=== PATIENT | male | born 1975 | race Caucasian/White ===

== ENCOUNTER 2020-05-06 11:44 | Outpatient (REF) | payer BC, SELFPAY ==
[2020-05-06 14:01] LABS: MANUAL DIFF FLAG NO
[2020-05-06 14:16] LABS: Basophils Absolute Auto 0.1 X10*3/uL (0.0-0.2); Basophils Percent Auto 0.5 % (0-2); Eosinophils Absolute Auto 0.3 X10*3/uL (0.0-0.4); Hematocrit 44.7 % (42-52); Hemoglobin 15.4 g/dl (14.0-18.0); Imm Gran Abs Auto 0.02 X10*3/uL (0.00-0.03); Imm Gran Pct Auto 0.2 % (0.0-0.4); Lymphocytes Percent Auto 32.2 % (20-40); Mean Corpuscular HGB Conc 34.5 g/dl (31.0-36.0); Mean Corpuscular Volume 92.9 fL (80-98); Mean Platelet Volume 12.8 fL (9.4-12.4); Monocytes Absolute Auto 0.4 X10*3/uL (0.1-1.2); Monocytes Percent Auto 3.8 % (2-11); Neutrophils Absolute Auto 5.6 X10*3/uL (2.0-8.3); Neutrophils Percent Auto 60.3 % (45-73); Platelet Count 166 X10*3/uL (160-400); Red Blood Count 4.81 X10*6/uL (4.60-5.80); Red Cell Distribution Width 11.6 % (11.0-16.0); White Blood Count 9.4 X10*3/uL (4.8-10.8)
== END 2020-05-06 11:45 | disposition home or self-care (01) ==
LOC: HO.WFDLDS 11:44
PROVIDERS: Visit Provider Family Medicine
DX: D72.829 Elevated white blood cell count, unspecified (principal)
CPT/HCPCS: 36415; 85025

== ENCOUNTER → 2020-05-20 09:18 | Outpatient (REF) | payer BC, SELFPAY ==
--- NOTE | 2020-05-20 09:30 | CA_ITS ---
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 The visually estimated ejection fraction is between 55-60%. - No obvious valvular pathology seen on this study. Findings Left Ventricle Normal left ventricular cavity size. There is normal left ventricular wall thickness. The left ventricular systolic function is normal. The visually estimated ejection fraction is between 55-60%. There is no evidence of regional wall motion abnormalities. Diastolic function is normal for age. Right Ventricle Normal right ventricular cavity size and systolic function. Atria The left atrium is normal in size. The right atrium is normal in size. Aortic Valve There is a normal trileaflet aortic valve. There is no aortic valve stenosis. There is no aortic valve regurgitation. Mitral Valve The mitral valve appears normal. There is trace mitral valve regurgitation. There is no mitral valve stenosis. Pulmonic Valve The pulmonic valve was not well visualized. Tricuspid Valve Normal tricuspid valve structure. There is no tricuspid valve regurgitation. Tricuspid regurgitation envelope is inadequate for calculation of right ventricular systolic pressure. Great Vessels The aortic annulus, sinuses of valsalva, and asc aorta are normal in size. Venous The inferior vena cava is normal in size and collapses greater than 50% with inspiration. Pericardium/Pleural There is no evidence of pericardial effusion. Prior Study Comparison No significant change compared to prior study dated: 01/03/2017. Recommendations, Care & Conclusions No obvious valvular pathology seen on this study. Measurements 2D Linear Measurements IVSd: 1.08 0.6-0.9/0.6-1.0 cm LVIDd: 4.68 3.9-5.3/4.2-5.9 cm LVIDd Index: 2.38 2.4-3.2/2.2-3.1 cm/m2 LVIDs: 2.62 2.0-3.6 cm LVPWd: 0.98 0.7-1.1 cm Ao Root: 3.30 2.1-3.5 cm LA Diam: 3.00 2.7-3.8/3.0-4.0 cm LAIDs Index: 1.52 1.5-2.3 cm/m2 LV Mass: 212.25 67-162/88-224 g LV Mass Index: 107.74 43-95/49-115 g/m2 LVOT Diam: 2.10 3.0+(-)1.3 cm 2D Systolic Function EF 4C: 61.50 >55% EF 2C: 50.50 >55% EF BiP: 56.90 >55% Mitral Valve MV Pk E: 0.58 MV PK A: 0.59 MV Decel Time: 127.00 E/A: 1.00 E'Lateral: 8.22 E'Medial: 8.12 E/E' Med: 7.10 E/E' Lat: 7.00 PHT: 37.00 MVA PHT: 5.95 Decel [place]: 4.55 Aortic Valve AoV Pk Harish: 1.05 AoV Mn Harish: 0.66 AoV VTI: 0.21 AoV Pk Grad: 4.00 Aov Mn Grad: 2.00 VIKRAM Cont.VTI: 2.39 LVOT LVOT Pk Harish: 0.70 LVOT Mn Harish: 0.56 LVOT VTI: 0.15 LVOT Pk Grad: 2.00 LVOT Mn Grad: 1.00 LVOT Diam: 2.10 LVOT Area: 3.46 Diastolic Function MV Pk E: 0.58 MV Pk A: 0.59 E/A: 1.00 E'Medial: 8.12 E/E' Med: 7.10 E' Laterial: 8.22 E/E' Lat: 7.00 Great Vessels Aorta Ao Root-2D: 3.30 2.0-3.7 cm Ao Asc: 3.00 2.1-3.4 cm Pulmonary Valve PV Pk Harish: 0.76 Peak PV Grad: 2.00 Updated in Other Vendor System with Status of Final Clive Martin MD electronically signed on 05/22/2020 4:52:18 PM with status of Final
--- NOTE | 2020-05-20 10:30 | ECG_ITS ---
Hook-up date: 2020-05-20 10:37:00 Duration: 44:26:00 Test Indications: PALPITATIONS Medications: 280021 QRS complexes 80 Ventricular ectopics which represent <1 % of total QRS comp. 2 Supraventricular ectopics which represent <1 % of total QRS comp. * Paced QRS complexs which represent % of total QRS comp. VENTRICULAR ECTOPY 80 Isolated 0 Bigeminal Cycles 0 Couplets 0 Runs 0 Beats in Runs * Beats LONGEST at * BPM at :: -- * Beats FASTEST at * BPM at :: -- SUPRAVENTRICULAR ECTOPY 2 Isolated 0 Couplets 0 Runs 0 Beats in Runs * Beats LONGEST at * BPM at :: -- * Beats FASTEST at * BPM at :: -- HEART RATES 51 MIN at 16:20:25 2020-05-20 86 AVG 140 MAX at 06:33:37 2020-05-21 LONGEST RR 1.3600 secs at 16:22:42 2020-05-20 S-T LEVELS Channel 1 - 128 mm at 10:37:00 2020-05-20 - 128 mm at 10:37:00 2020-05-20 Channel 2 - 128 mm at 10:37:00 2020-05-20 - 128 mm at 10:37:00 2020-05-20 Channel 3 - 128 mm at 02:95:61 -- - 128 mm at 02:95:61 Underlying rhythm is sinus; Average ventricular rate 86/min; About 23% of the time, ventricular rate >100/min; Occasional, isolated, ventricular ectopy; Patient did not report any symptoms in the diary Referred By: Tra Blackburn Overread By: OLGA HARRINGTON
== END ==
LOC: HO.CARD 09:18
PROVIDERS: PCP Family Medicine; Visit Provider Family Medicine
DX: R07.89 Other chest pain (principal); R00.2 Palpitations; I49.3 Ventricular premature depolarization
CPT/HCPCS: 93225; 93226; 93306

== ENCOUNTER 2021-03-08 07:07 | Outpatient (REF) | payer BC, SELFPAY ==
[2021-03-08 11:25] LABS: MANUAL DIFF FLAG NO
[2021-03-08 11:41] LABS: Basophils Absolute Auto 0.1 X10*3/uL (0.0-0.2); Basophils Percent Auto 0.5 % (0-2); Eosinophils Absolute Auto 0.5 X10*3/uL (0.0-0.4); Eosinophils Percent Auto 5.1 % (0-4); Hematocrit 49.1 % (42.0-52.0); Hemoglobin 17.1 g/dl (14.0-18.0); Imm Gran Abs Auto 0.04 X10*3/uL (0.00-0.03); Imm Gran Pct Auto 0.4 % (0.0-0.4); Lymphocytes Absolute Auto 4.1 X10*3/uL (1.2-4.9); Lymphocytes Percent Auto 41.5 % (20-40); Mean Corpuscular HGB Conc 34.8 g/dl (31.0-36.0); Mean Corpuscular Hemoglobin 32.1 pg (27.0-33.0); Mean Corpuscular Volume 92.1 fL (80.0-98.0); Monocytes Absolute Auto 0.4 X10*3/uL (0.1-1.2); Monocytes Percent Auto 4.5 % (2-11); Neutrophils Absolute Auto 4.7 x10*3/uL (2.0-8.3); Platelet Count 177 X10*3/uL (160-400); Red Blood Count 5.33 X10*6/uL (4.60-5.80); Red Cell Distribution Width 11.9 % (11.0-16.0); White Blood Count 9.8 X10*3/uL (4.8-10.8)
[2021-03-08 12:05] LABS: Amphetamine Screen Urine Not Detected (Not Detect); Barbiturates, Urine Not Detected (Not Detect); Benzodiazepines Screen Urine POSITIVE (Not Detect); Cannabinoid Screen Urine Not Detected (Not Detect); Cocaine Screen Urine Not Detected (Not Detect); Fentanyl, urine Not Detected (Not Detect); Opiate Screen Urine Not Detected (Not Detect); Phencyclidine Screen Urine Not Detected (Not Detect)
[2021-03-08 12:18] LABS: Appearance Urine CLEAR; Color Urine YELLOW; Glucose Urine UA NEG (NEG); Leukocyte Esterase Urine NEG (NEG); Nitrite Urine NEG (NEG); PH 5.5 (5.0-8.0); Specific Gravity - Urine >= 1.030 (1.005-1.025); Urine Blood NEG (NEG); Urine Ketones NEG (NEG); Urine Protein NEG (NEG-TRACE)
[2021-03-08 14:18] LABS: Alanine Aminotransferase 23 U/L (0-40); Albumin Level 4.1 g/dL (3.5-5.0); Alkaline Phosphatase 66 U/L (39-117); Anion Gap 14 (12-20); Aspartate Amino Transferase 13 U/L (5-37); Bilirubin Total 0.4 mg/dL (0.0-1.0); Blood Urea Nitrogen 12 mg/dL (9-16); Calcium 8.9 mg/dL (8.4-10.2); Carbon Dioxide 23 mmol/L (22-29); Chloride 109 mmol/L (96-108); Estimated Glomerular Filt Rate > 60; Glucose Fasting 105 mg/dL (60-99); Potassium 4.2 mmol/L (3.3-5.1); Sodium 142 mmol/L (135-145); Total Protein 6.4 g/dL (6.5-8.0)
[2021-03-08 14:40] LABS: TSH reflex Free T4 2.03 uIU/mL (0.32-4.0)
[2021-03-12 14:15] LABS: Testosterone, Free 108.9 pg/mL (35.0-155.0); Testosterone, Total 576 ng/dL (250-1100)
== END 2021-03-08 07:08 | disposition home or self-care (01) ==
LOC: HO.WFDLDS 07:07
PROVIDERS: Visit Provider Family Medicine
DX: Z00.00 Encounter for general adult medical examination without abnormal findings (principal); F41.9 Anxiety disorder, unspecified; F32.A Depression, unspecified; R53.83 Other fatigue
CPT/HCPCS: 80053; 80307; 81003; 84402; 84403; 84443; 85025

== ENCOUNTER 2021-10-12 12:09 | Outpatient (REF) | payer BC, SELFPAY ==
[2021-10-12 12:55] LABS: Influenza A PCR NEGATIVE (Negative); Influenza B PCR NEGATIVE (Negative); Resp Syncy Virus RNA Qual PCR NEGATIVE (Negative); SARS COV2 PCR INHOUSE POSITIVE (Negative)
== END 2021-10-12 12:10 | disposition home or self-care (01) ==
LOC: HO.LNP 12:09
PROVIDERS: Visit Provider Family Medicine
DX: Z20.822 Contact with and (suspected) exposure to COVID-19 (principal); B34.9 Viral infection, unspecified
CPT/HCPCS: 0241U

== ENCOUNTER 2023-08-17 15:40 | Outpatient (AMB) | payer BC, SELFPAY ==
[2023-08-17 15:47] VITALS: BP 110/70; PULSE 86; O2SAT 95; BMI 27.9
--- NOTE | 2023-08-17 15:47 | A.OFFPC_ITS ---
Vital Signs 08/17/23 15:47 Height 5 ft 9 in Weight 189 lb BMI 27.9 BP 110/70 Blood Pressure Location Lt brachial Position Sitting Pulse 86 Pulse Source Pulse Oximeter Pulse Oximetry (%) 95 Oxygen Delivery Method Room Air Intake Visit Reasons: CPE Follow up labs Intake Note: Patient is here for his physical today, but did not get his labs. Allergies No Known Allergies [No Known Allergies*] Allergy (Verified 08/17/23 15:51) Medication List - Last Reconciled 08/17/23 by Tra Blackburn MD alprazolam 0.5 mg PO DAILY 30 days Tobacco use date assessed: 08/17/23 HPI CPE Follow up labs HPI Details 48 y/o male presents for a CPE with f/u labs and health maintenance. No recent labs to review. Pt reports anxiety - he notes mirtazapine had been causing him to snap at work when he states he is normally more calm. JANUARY-7 18 today Pt notes he had back pain and had gotten hurt at work. He states difficulty sitting and standing up straight. [facility] Medical History (Updated 08/17/23 @ 16:51 by Jose Moran) Lower back pain Surgical History History of elbow surgery Family History (Updated 08/17/23 @ 15:55 by Karyn Preston CMA) Father CVD (cardiovascular disease) Myocardial infarction Mental health disorder Mother Mental health disorder Brother No problems noted. Sister Mental health disorder Sister No problems noted. Son No problems noted. Son No problems noted. Social History Housing: House Alcohol intake: never Patient Tobacco Use Status: Current everyday Tobacco user Tobacco use type: Cigarette Cigarette Packs Per Day: 1 Cigarettes Per Day: 15 e-Cigarette/Vaping Use: Never Used Second Hand Smoke Exposure: Yes service: No Current occupational status: employed Cognitive needs: No Hearing needs: No Vision needs: Yes (Glasses) Questionnaire PHQ-9 Over the last 2 weeks, how often have you been bothered by any of the following problems? 1. Little interest or pleasure in doing things: not at all 2. Feeling down, depressed, or hopeless: not at all 3. Trouble falling or staying asleep, or sleeping too much: not at all 4. Feeling tired or having little energy: not at all 5. Poor appetite or overeating: not at all 6. Feeling bad about yourself - or that you are a failure or have let yourself or your family down: not at all 7. Trouble concentrating on things, such as reading the newspaper or watching television: not at all 8. Moving or speaking so slowly that other people could have noticed. Or the opposite - being so fidgety or restless that you have been moving around a lot more than usual: not at all 9. Thoughts that you would be better off or of hurting yourself in some way: not at all Total score: 0 Depression Screening Interpretation: Negative Depression Screening Done: Yes 35083 - PHQ-9 Billing: Yes Source: Developed by Drs. Gelacio Enriquez, Pretty Ricks, Betito Ramirez and colleagues, with an educational bhumika from [employer]. Thrive Questionnaire Date Thrive assessed: 10/26/21 I am a: Patient What is your living situation today?: I have a steady place to live Within the past 12 months, did the food you bought not last and you didn't have the money to get more?: Never true Within the past 12 months, did you worry whether your food would run out before you got money to buy more?: Never true Do you have trouble paying for medicines?: No Do you have trouble getting transportation to medical appointments?: No Do you have trouble paying your heating and electricity bill?: No Do you have trouble taking care of your child, family member or friend?: No Do you have trouble with day-to-day activities such as bathing, preparing meals, shopping, managing finances, etc.?: No Are you currently unemployed and looking for a job?: No Are you interested in more education?: No THRIVE Score: 0 AUDIT C Alcohol Use Questionnaire (AUDIT-C) 1. How often do you have a drink containing alcohol?: Never 3. How often do you have six or more drinks on one occasion?: Never Total Score: 0 JANUARY-7 AMB Questionnaire JANUARY-7 Date JANUARY - 7 assessed: 08/17/23 Feeling nervous, anxious, or on edge: 3 = Nearly every day Not being able to stop or control worryin = Nearly every day Worrying too much about different things: 3 = Nearly every day Trouble relaxin = Nearly every day Being so restless that it is hard to sit still: 3 = Nearly every day Becoming easily annoyed or irritable: 0 = Not at all Feeling afraid as if something awful might happen: 3 = Nearly every day Total JANUARY-7 score (0-4 normal; 5-9 mild; 10-14 moderate; 15-21 severe): 18 Source: Developed by Drs. Gelacio Enriquez, Pretty Ricks, Betito Ramirez and colleagues, with an educational bhumika from [employer]. JANUARY-7 Assessment Billing JANUARY-7 Assessment Tool: JANUARY-7 Assessment 30155 Review of Systems Const Denies chills, Denies fatigue, Denies fever(s), Denies headache(s) and Denies weakness Eyes Denies change in vision ENT Denies dizziness, Denies headache(s), Denies hearing loss, Denies nasal congestion, Denies sinus pain, Denies sinus pressure and Denies sore throat Card Denies chest pain, Denies lightheadedness, Denies dyspnea and Denies other (palpitations) Resp Denies cough, Denies dyspnea and Denies wheezing GI Denies abdominal pain, Denies melena, Denies hematochezia, Denies change in bowel habits, Denies dyspepsia and Denies nausea Denies hematuria and Denies dysuria Musc Denies abnormal gait, Reports back pain, Denies myalgias, Denies arthralgias, Denies numbness and Denies tingling Skin/Breast Denies rash, Denies unusual bruising and Denies wounds Neuro Denies abnormal gait, Denies dizziness, Denies headache(s), Denies memory loss, Denies numbness, Denies Sensory deficit (Neuro), Denies tingling and Denies weakness Psych Reports anxiety and Denies memory loss Endo Denies cold intolerance, Denies fatigue, Denies heat intolerance, Denies polyd ipsia and Denies polyuria Elvis/Lymph Denies easy bleeding and Denies easy bruising Aller/Immun Denies wheezing Physical exam (Primary Care) Vital Signs: Last Vital Signs Pulse 86 08/17/23 15:47 BP 110/70 08/17/23 15:47 Pulse Ox 95 08/17/23 15:47 Oxygen Delivery Method Room Air 08/17/23 15:47 BMI result Body Mass Index 27.9 Tobacco/Smoking Status: Tobacco use Status Tobacco use date assessed 08/17/23 08/17/23 16:02 Patient Tobacco Use Status Current everyday Tobacco 08/17/23 15:49 Tobacco use type Cigarette 08/17/23 15:49 e-Cigarette/Vaping Use Never Used 08/17/23 15:49 PHQ-9: PHQ-9 Score PHQ-9: Total score 0 08/17/23 16:02 Depression Screening Interpretation: Negative Thrive Assessment: Date of Thrive Assessment Date Thrive assessed 10/26/21 08/17/23 15:49 Const General: no acute distress, well developed, alert and awake Nutritional Appearance: well nourished Orientation/consciousness: patient oriented x3 HENMT Head: Yes normocephalic and Yes atraumatic Ears: hearing grossly normal bilaterally and TM's normal bilaterally General nose exam: Normal external nose present and Normal nares present Mouth: Normal oral and palatal mucosa present and moist mucous membranes Teeth and gingiva: dentition normal Throat: Yes posterior oropharynx normal Eyes General: appearance normal, both eyes and all related structures Pupils: Equal, round and reactive pupils present and Pupil accommodation reflex normal EOM: EOMs intact bilaterally Neck Neck: Yes normal visual inspection, Yes no lymphadenopathy and Yes trachea midline Thyroid: Thyroid normal Carotids: no bruits Lymphatic: no lymphadenopathy noted Chest Chest palpation & inspection: normal inspection of the chest Resp Effort & Inspection: normal respiratory effort Auscultation: clear to auscultation bilaterally Cardio Rate: regular rate Rhythm: regular rhythm Heart sounds: S1 normal heart sound present, S2 normal heart sound present, no gallops, no murmurs and no rubs Bruits: no abdominal aortic bruits and no carotid bruits GI Palpation (GI): No Abdominal aortic bruit present, Soft to palpation, nontender, No hepatosplenomegaly present and No Rebound tenderness present Auscultation: normal bowel sounds General: Yes no CVA tenderness Back/Spine/Pelvis Other: Straight leg raises to about 65 degrees bilateral legs with pain and symptoms Hunched over gait, pain with range of motion of his back Back: no CVA tenderness Cervical Spine: cervical ROM normal Thoracic/Lumbar Spine: thoraco-lumbar ROM normal, No pain with thoraco-lumbar ROM, No thoracic spinal tenderness and No lumbar spinal tenderness Skin Lesions: no lesions Rashes: no rashes Trauma: no lacerations or abrasions Wounds: no wounds Nails: normal Neuro General: patient oriented x3 Cranial nerves: Yes Equal, round and reactive pupils present Cognition (Neuro): normal cognition Gait exam (Neuro): Normal gait present Motor exam (neuro): 5/5 motor strength present throughout Sensory Exam: No Sensory deficit (Neuro) Deep tendon reflexes (DTR's): Right patellar reflex intensity grade: 2+ and Left patellar reflex intensity grade: 2+ Extrem General: Yes normal to inspection and No edema Psych Appearance: grossly normal Affect: normal affect Attitude: cooperative Thought process: Normal thought process present Assessment and Plan Assessment & Plan (1) Adult general medical exam: Code(s): Z00.00 - Encounter for general adult medical examination without abnormal findings Plan: 48-year-old?male?presents?for?complete?physical?exam (2) Back pain: Code(s): M54.9 - Dorsalgia, unspecified Plan: Recent?moderately?severe?back?strain. Evaluated?patient?and?he?is?going?to?need?more?time?for?recovery.??I?do?not?feel ?that?modified?work?with?lifting?restrictions?is?enough.??Will?give?him?a?note?t o?be?out?of?work?for?the?next?3?weeks?and?I?will?follow-up?prior?to?this. Encouraged?him?to?change?positions?frequently?in?that?standing/short?spans?a?[place]?are?a?good?idea?but?he?should?not?lift?push?or ?pull?anything.??Will?give?him?a?script?for?ibuprofen?and?a?very?short?course?of ?cyclobenzaprine. Encouraged?ice/heat Will?follow-up?at?next?visit?and?determine?if?he?is?ready?to?start?work?with?res trictions?or?needs?a?longer?span?of?rest?or?a?referral?to?a?specialist. (3) Anxiety and depression: Code(s): F41.9 - Anxiety disorder, unspecified; F32.A - Depression, unspecified Plan: Rather?severe?anxiety Continue?alprazolam He?is?tried?numerous?other?medications. Encouraged?him?to?get?re connected?with?a?therapist?and?he?agrees.??Will?ask?the?nurse?navigator?to?help? connect?him. Orders: Orders Complete Blood Count Auto Diff Today Z00.00 - Encounter for general adult medical examination without abnormal findings Lipid Panel Today Z00.00 - Encounter for general adult medical examination without abnormal findings Prostate Specific Antigen Scr Today Z12.5 - Encounter for screening for malignant neoplasm of prostate Comprehensive [place]. Panel Fast Today Z00.00 - Encounter for general adult medical examination without abnormal findings Microalbumin, Random (w Creat) Today I10 - Essential (primary) hypertension TSH reflex Free T4 Today Z00.00 - Encounter for general adult medical examination without abnormal findings UA and rflx microscopic Today Z00.00 - Encounter for general adult medical examination without abnormal findings Referrals Nurse Navigator Referral F32.A - Depression, unspecified, F41.9 - Anxiety disorder, unspecified Medications: New cyclobenzaprine 10 mg PO BEDTIME 5 days PRN 5 tabs 0RF muscle spasm ibuprofen 800 mg PO Q8H 14 days PRN 42 tabs 0RF pain Coding Level of Care Code Est Pt Prev Care 40-64y(30586) Diagnoses Adult general medical exam Z00.00 Back pain M54.9 Anxiety and depression F41.9; F32.A Additional Codes JANUARY-7 Assessment Billing - JANUARY-7 Assessment Tool: JANUARY-7 Assessment 77778 ([id number])
== END 2023-08-17 17:06 | disposition home or self-care (01) ==
PROVIDERS: PCP Family Medicine; Visit Provider Family Medicine
DX: Z00.00 Encounter for general adult medical examination without abnormal findings (principal); M54.9 Dorsalgia, unspecified; F41.9 Anxiety disorder, unspecified; F32.A Depression, unspecified
CPT/HCPCS: 99396

== ENCOUNTER 2023-09-12 14:24 | Outpatient (AMB) | payer BC, SELFPAY ==
[2023-09-12 14:47] VITALS: BP 128/68; PULSE 79; O2SAT 97; BMI 28.1
--- NOTE | 2023-09-12 14:47 | A.OFFPC_ITS ---
Vital Signs 09/12/23 14:47 Height 5 ft 9 in Weight 190 lb BMI 28.1 BP 128/68 Blood Pressure Location Lt brachial Pulse 79 Pulse Source Pulse Oximeter Pulse Oximetry (%) 97 Oxygen Delivery Method Room Air Intake Visit Reasons: f/u back pain Intake Note: Patient is here with FMLA papers for back pain. Patient would like refill of the Alprazolam. Allergies No Known Allergies [No Known Allergies*] Allergy (Verified 09/12/23 14:48) Tobacco use date assessed: 08/17/23 Dental Screening Dental Screen Date: 09/12/23 Did you have a dental visit in the last 12 months?: Yes Did you have a dental problem in the last 6 months where you did not have access to dental care?: No Was dental information given to patient?: Patient declined HPI f/u back pain HPI Details 48 y/o male [facility]. He has FMLA paperwork he would like filled. He reports ongoing back pain but does note it has minimally improved. [facility] Medical History Lower back pain Surgical History History of elbow surgery Family History Father CVD (cardiovascular disease) Myocardial infarction Mental health disorder Mother Mental health disorder Brother No problems noted. Sister Mental health disorder Sister No problems noted. Son No problems noted. Son No problems noted. Social History Housing: House Alcohol intake: never Patient Tobacco Use Status: Current everyday Tobacco user Tobacco use type: Cigarette Cigarette Packs Per Day: 1 Cigarettes Per Day: 15 e-Cigarette/Vaping Use: Never Used Second Hand Smoke Exposure: Yes service: No Current occupational status: employed Cognitive needs: No Hearing needs: No Vision needs: Yes (Glasses) Questionnaire Thrive Questionnaire Date Thrive assessed: 10/26/21 JANUARY-7 AMB Questionnaire JANUARY-7 Date JANUARY - 7 assessed: 08/17/23 Source: Developed by Drs. Gelacio Enriquez, Pretty Ricks, Betito Ramirez and colleagues, with an educational bhumika from [employer] [employer]. Review of Systems Const Denies chills, Denies fatigue, Denies fever(s), Denies headache(s) and Denies weakness ENT Denies dizziness and Denies headache(s) Card Denies dyspnea Resp Denies cough, Denies dyspnea, Denies wheezing and Denies other (shortness of breath) Musc Reports back pain, Denies numbness and Denies tingling Neuro Denies dizziness, Denies headache(s), Denies numbness, Denies tingling and Denies weakness Psych Denies anxiety and Denies depression Endo Denies fatigue Aller/Immun Denies wheezing Physical exam (Primary Care) Vital Signs: Last Vital Signs Pulse 79 09/12/23 14:47 BP 128/68 09/12/23 14:47 Pulse Ox 97 09/12/23 14:47 Oxygen Delivery Method Room Air 09/12/23 14:47 BMI result Body Mass Index 28.1 Tobacco/Smoking Status: Tobacco use Status Tobacco use date assessed 08/17/23 09/12/23 14:50 Patient Tobacco Use Status Current everyday Tobacco 09/12/23 14:50 Tobacco use type Cigarette 09/12/23 14:50 e-Cigarette/Vaping Use Never Used 09/12/23 14:50 Thrive Assessment: Date of Thrive Assessment Date Thrive assessed 10/26/21 09/12/23 14:50 Const General: well developed; No acute distress Nutritional Appearance: well nourished Orientation/consciousness: patient oriented x3 HENMT Head: Yes normocephalic and Yes atraumatic Eyes General: appearance normal, both eyes and all related structures Pupils: Equal, round and reactive pupils present EOM: EOMs intact bilaterally Resp Effort & Inspection: normal respiratory effort Neuro General: patient oriented x3 and gait normal Cranial nerves: Yes Equal, round and reactive pupils present Psych Affect: normal affect Assessment and Plan Assessment & Plan (1) Back pain: Code(s): M54.9 - Dorsalgia, unspecified Plan: Patient?had?had?severe?low?back?pain?at?level?of?L5 Had?given?him?3?weeks?time?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 He?notes?that?he?is?gradually?getting?better?but?still?has?discomfort Will?now?start?physical?therapy?and?check?an?x-ray Filled?out?FMLA?paperwork.??Will?keep?him?out?through?September??and?he?may?return ?to?work?without?restrictions?on?September?.??He?will ?call?or?return?to?office?if?symptoms?worsen?or?are?not?resolved. Orders: Orders XR lumbar spine 2-3V Today M54.9 - Dorsalgia, unspecified PT Evaluation and Treatment Today M54.9 - Dorsalgia, unspecified Medications: Refilled alprazolam 20 tabs per 30 days. [employer] verified. Partial refill upon request. 0.5 mg PO DAILY 30 days 20 tabs 0RF M54.9 - Dorsalgia, unspecified ibuprofen 800 mg PO Q8H 14 days PRN 42 tabs 0RF pain M54.9 - Dorsalgia, unspecified Coding Level of Care Code Est Pt Level 3 (86035) Diagnoses Back pain M54.9
== END 2023-09-12 15:50 | disposition home or self-care (01) ==
PROVIDERS: PCP Family Medicine; Visit Provider Family Medicine
DX: M54.9 Dorsalgia, unspecified (principal)
CPT/HCPCS: 99213

== ENCOUNTER 2023-12-21 08:35 | Outpatient (AMB) | payer BC, SELFPAY ==
--- NOTE | 2023-12-21 08:46 | MHC.PC.OV ---
Vital Signs 12/21/23 08:50 Height 5 ft 9 in Weight 187 lb BMI 27.6 BP 100/70 Blood Pressure Location Lt brachial Position Sitting Respiration 12 Pulse 90 Pulse Source Pulse Oximeter Temp 97.8 F Temp Source Tympanic Pulse Oximetry (%) 95 Oxygen Delivery Method Room Air Intake Visit Reasons: follow up anxiety issues Intake Note: mental health f/u Allergies No Known Allergies [No Known Allergies*] Allergy (Verified 12/21/23 08:46) Tobacco use date assessed: 08/17/23 Dental Screening Dental Screen Date: 09/12/23 HPI follow up anxiety issues HPI Details 48 y/o male presents to f/u anxiety. Also f/u back pain - checking x-ray and referred him to physical therapy. PHQ-9 15, JANUARY-7 18 today. He is on alprazolam 0.5mg daily. Pt notes anxiety has been worsening since last week. He reports anxiety has erupted into panic attacks and he is unsure why his anxiety is spiking. Had trialed mirtazapine before but pt states this had caused him to be irritable. Denies any SI/HI. HPI Comments History of Present Illness Details Documentation assistance for Tra Blackburn MD, was provided by Jose Moran, Psychologist Industrial Organ[employer] on 12/21/2023 at 9:04 AM EST. I, Dr. Blackburn, have read, observed, and verified documentation. [facility] Medical History Lower back pain Surgical History History of elbow surgery Family History Father CVD (cardiovascular disease) Myocardial infarction Mental health disorder Mother Mental health disorder Brother No problems noted. Sister Mental health disorder Sister No problems noted. Son No problems noted. Son No problems noted. Social History Housing: House Alcohol intake: never Patient Tobacco Use Status: Current everyday Tobacco user Tobacco use type: Cigarette Cigarette Packs Per Day: 1 Cigarettes Per Day: 15 e-Cigarette/Vaping Use: Never Used Second Hand Smoke Exposure: Yes service: No Current occupational status: employed Cognitive needs: No Hearing needs: No Vision needs: Yes (Glasses) Questionnaire PHQ-9 Over the last 2 weeks, how often have you been bothered by any of the following problems? 1. Little interest or pleasure in doing things: nearly every day 2. Feeling down, depressed, or hopeless: more than half the days 3. Trouble falling or staying asleep, or sleeping too much: several days 4. Feeling tired or having little energy: nearly every day 5. Poor appetite or overeating: not at all 6. Feeling bad about yourself - or that you are a failure or have let yourself or your family down: nearly every day 7. Trouble concentrating on things, such as reading the newspaper or watching television: not at all 8. Moving or speaking so slowly that other people could have noticed. Or the opposite - being so fidgety or restless that you have been moving around a lot more than usual: nearly every day 9. Thoughts that you would be better off or of hurting yourself in some way: not at all Total score: 15 Depression Screening Interpretation: Positive Depression Screening Done: Yes 87861 - PHQ-9 Billing: Yes Source: Developed by Drs. Gelacio Enriquez, Betito Monroy and colleagues, with an educational bhumika from [employer]. Thrive Questionnaire Date Thrive assessed: 10/26/21 JANUARY-7 AMB Questionnaire JANUARY-7 Date JANUARY - 7 assessed: 12/21/23 Feeling nervous, anxious, or on edge: 3 = Nearly every day Not being able to stop or control worryin = Nearly every day Worrying too much about different things: 3 = Nearly every day Trouble relaxin = Nearly every day Being so restless that it is hard to sit still: 3 = Nearly every day Becoming easily annoyed or irritable: 0 = Not at all Feeling afraid as if something awful might happen: 3 = Nearly every day Total JANUARY-7 score (0-4 normal; 5-9 mild; 10-14 moderate; 15-21 severe): 18 Source: Developed by Drs. Gelacio Enriquez, Betito Monroy and colleagues, with an educational bhumika from [employer]. JANUARY-7 Assessment Billing JANUARY-7 Assessment Tool: JANUARY-7 Assessment 43710 Review of Systems Const Denies chills, Denies fatigue, Denies fever(s), Denies headache(s) and Denies weakness ENT Denies dizziness and Denies headache(s) Card Denies dyspnea Resp Denies cough, Denies dyspnea, Denies wheezing and Denies other (shortness of breath) Musc Denies numbness and Denies tingling Neuro Denies dizziness, Denies headache(s), Denies numbness, Denies tingling and Denies weakness Psych Reports anxiety and Reports depression Endo Denies fatigue Aller/Immun Denies wheezing Physical exam (Primary Care) Vital Signs: Last Vital Signs Temp 97.8 F 12/21/23 08:50 Pulse 90 12/21/23 08:50 Resp 12 12/21/23 08:50 BP 100/70 12/21/23 08:50 Pulse Ox 95 12/21/23 08:50 Oxygen Delivery Method Room Air 12/21/23 08:50 BMI result Body Mass Index 27.6 Tobacco/Smoking Status: Tobacco use Status Tobacco use date assessed 08/17/23 12/21/23 08:52 Patient Tobacco Use Status Current everyday Tobacco 12/21/23 08:52 Tobacco use type Cigarette 12/21/23 08:52 e-Cigarette/Vaping Use Never Used 12/21/23 08:52 PHQ-9: PHQ-9 Score PHQ-9: Total score 15 12/21/23 09:04 Depression Screening Interpretation: Positive Thrive Assessment: Date of Thrive Assessment Date Thrive assessed 10/26/21 12/21/23 08:52 Const General: well developed; No acute distress Nutritional Appearance: well nourished Orientation/consciousness: patient oriented x3 HEN[facility] Head: Yes normocephalic and Yes atraumatic Eyes General: appearance normal, both eyes and all related structures Pupils: Equal, round and reactive pupils present EOM: EOMs intact bilaterally Resp Effort & Inspection: normal respiratory effort Neuro General: patient oriented x3 and gait normal Cranial nerves: Yes Equal, round and reactive pupils present Psych Affect: Anxious affect present Assessment and Plan Assessment & Plan (1) Anxiety and depression: Code(s): F41.9 - Anxiety disorder, unspecified; F32.A - Depression, unspecified Plan: Ongoing/worsening?anxiety?and?depression. No?longer?on?mirtazapine?which?was?causing?irritability.??He?has?also?tried?SSRIs?in?the?past?which?had?similar?affects. Will?trial?Abilify Continue?alprazolam?as?needed Referring?him?to?[facility]?outpatient?psychiatric?consult. Follow-up?in?3?weeks (2) Back pain: Code(s): M54.9 - Dorsalgia, unspecified Plan: This?has?improved Advised?gentle?stretching He?will?let?me?know?if?this?is?worsening Orders: Referrals Psychiatry Outpatient Consultation Service F32.A - Depression, unspecified, F41.9 - Anxiety disorder, unspecified Medications: New aripiprazole (Abilify) 5 mg PO BEDTIME 30 days 30 tabs 1RF Coding Level of Care Code Est Pt Level 3 (95855) Diagnoses Anxiety and depression F41.9; F32.A Back pain M54.9 Additional Codes JANUARY-7 Assessment Billing - JANUARY-7 Assessment Tool: JANUARY-7 Assessment 17978 ([id number])
[2023-12-21 08:50] VITALS: BP 100/70; PULSE 90; RESP 12; TEMP 36.6; O2SAT 95; BMI 27.6
== END 2023-12-21 09:41 | disposition home or self-care (01) ==
PROVIDERS: PCP Family Medicine; Visit Provider Family Medicine
DX: F41.9 Anxiety disorder, unspecified (principal); F32.A Depression, unspecified; M54.9 Dorsalgia, unspecified
CPT/HCPCS: 96127; 99213

== ENCOUNTER 2024-01-09 09:34 | Outpatient (AMB) | payer BC, SELFPAY ==
--- NOTE | 2024-01-09 10:21 | A.OFFPC_ITS ---
Vital Signs 01/09/24 10:26 Height 5 ft 9 in Weight 187 lb 4 oz BMI 27.6 BP 116/80 Blood Pressure Location Rt brachial Position Sitting Respiration 16 Pulse 70 Pulse Source Pulse Oximeter Temp 96.9 F Temp Source Tympanic Pulse Oximetry (%) 95 Oxygen Delivery Method Room Air Intake Visit Reasons: f/u anxiety/depression Intake Note: anxiety/depression follow up pt has psych appt and they will keep up with his psych meds Allergies No Known Allergies [No Known Allergies*] Allergy (Verified 01/09/24 10:22) Tobacco use date assessed: 08/17/23 Dental Screening Dental Screen Date: 09/12/23 HPI f/u anxiety/depression HPI Details 48 y/o male presents to f/u anxiety/depr ession. Trialing Abilify 2.5mg daily which he can increase to 5mg daily. Had referred him to [facility] outpatient psychiatric consult. PHQ-9 12, JANUARY-7 16 today. Has an appt. 01/11/24 with psychiatry. Blood pressure today 116/80. HPI Comments History of Present Illness Details Documentation assistance for Tra Blackburn MD, was provided by Jose Moran,? Public Health Analyst on 01/09/2024 at 10:37 AM EST. I, Dr. Blackburn, have read, ob served, and verified documentation. [facility] Medical History Lower back pain Surgical History History of elbow surgery Family History Father CVD (cardiovascular disease) Myocardial infarction Mental health disorder Mother Mental health disorder Brother No problems noted. Sister Mental health disorder Sister No problems noted. Son No problems noted. Son No problems noted. Social History Housing: House Alcohol intake: never Patient Tobacco Use Status: Current everyday Tobacco user Tobacco use type: Cigarette Cigarette Packs Per Day: 1 Cigarettes Per Day: 15 e-Cigarette/Vaping Use: Never Used Second Hand Smoke Exposure: Yes service: No Current occupational status: employed Cognitive needs: No Hearing needs: No Vision needs: Yes (Glasses) Questionnaire PHQ-9 Over the last 2 weeks, how often have you been bothered by any of the following problems? 1. Little interest or pleasure in doing things: nearly every day 2. Feeling down, depressed, or hopeless: several days 3. Trouble falling or staying asleep, or sleeping too much: several days 4. Feeling tired or having little energy: several days 5. Poor appetite or overeating: not at all 6. Feeling bad about yourself - or that you are a failure or have let yourself or your family down: nearly every day 7. Trouble concentrating on things, such as reading the newspaper or watching television: not at all 8. Moving or speaking so slowly that other people could have noticed. Or the opposite - being so fidgety or restless that you have been moving around a lot more than usual: nearly every day 9. Thoughts that you would be better off or of hurting yourself in some way: not at all Total score: 12 Depression Screening Interpretation: Positive Depression Screening Done: Yes 36533 - PHQ-9 Billing: Yes Source: Developed by Drs. Gelacio Enriquez, Pretty Ricks, Betito Ramirez and colleagues, with an educational bhumika from [employer]. Thrive Questionnaire Date Thrive assessed: 10/26/21 AUDIT C Alcohol Use Questionnaire (AUDIT-C) 3. How often do you have six or more drinks on one occasion?: Never Total Score: 0 JANUARY-7 AMB Questionnaire JANUARY-7 Date JANUARY - 7 assessed: 01/09/24 Feeling nervous, anxious, or on edge: 3 = Nearly every day Not being able to stop or control worryin = Nearly every day Worrying too much about different things: 3 = Nearly every day Trouble relaxin = Nearly every day Being so restless that it is hard to sit still: 1 = Several days Becoming easily annoyed or irritable: 0 = Not at all Feeling afraid as if something awful might happen: 3 = Nearly every day Total JANUARY-7 score (0-4 normal; 5-9 mild; 10-14 moderate; 15-21 severe): 16 Source: Developed by Drs. Gelacio Enriquez, Pretty Ricks, Betito Ramirez and colleagues, with an educational bhumika from [employer]. JANUARY-7 Assessment Billing JANUARY-7 Assessment Tool: JANUARY-7 Assessment 11445 Review of Systems Const Denies chills, Denies fatigue, Denies fever(s), Denies headache(s) and Denies weakness ENT Denies dizziness and Denies headache(s) Card Denies dyspnea Resp Denies cough, Denies dyspnea, Denies wheezing and Denies other (shortness of breath) Musc Denies numbness and Denies tingling Neuro Denies dizziness, Denies headache(s), Denies numbness, Denies tingling and Denies weakness Psych Reports anxiety and Reports depression Endo Denies fatigue Aller/Immun Denies wheezing Physical exam (Primary Care) Vital Signs: Last Vital Signs Temp 96.9 F 01/09/24 10:26 Pulse 70 01/09/24 10:26 Resp 16 01/09/24 10:26 BP 90/60 01/09/24 10:26 Pulse Ox 95 01/09/24 10:26 Oxygen Delivery Method Room Air 01/09/24 10:26 BMI result Body Mass Index 27.6 Tobacco/Smoking Status: Tobacco use Status Tobacco use date assessed 08/17/23 01/09/24 10:30 Patient Tobacco Use Status Current everyday Tobacco 01/09/24 10:30 Tobacco use type Cigarette 01/09/24 10:30 e-Cigarette/Vaping Use Never Used 01/09/24 10:30 PHQ-9: PHQ-9 Score PHQ-9: Total score 12 01/09/24 10:30 Depression Screening Interpretation: Positive Thrive Assessment: Date of Thrive Assessment Date Thrive assessed 10/26/21 01/09/24 10:30 Const General: well developed; No acute distress Nutritional Appearance: well nourished Orientation/consciousness: patient oriented x3 [facility] Head: Yes normocephalic and Yes atraumatic Eyes General: appearance normal, both eyes and all related structures Pupils: Equal, round and reactive pupils present EOM: EOMs intact bilaterally Resp Effort & Inspection: normal respiratory effort Neuro General: patient oriented x3 and gait normal Cranial nerves: Yes Equal, round and reactive pupils present Psych Affect: normal affect Assessment and Plan Assessment & Plan (1) Anxiety and depression: Code(s): F41.9 - Anxiety disorder, unspecified; F32.A - Depression, unspecified Plan: Ongoing?significant?anxiety?and?depression. Have?tried?numerous?medications?including?SSRIs, tricyclic/tetracyclic?antidepressants, second-generation?antipsychotic. Continue?alprazolam?as?prescribed He?has?an?appointment?with?the[facility]o utpatient?psychiatric?consult?team?in?2?days. Briefly?discussed buspirone?but?will?hold?off?on?something?like?this?as?he?can?discuss?medications ?with?the?consult?team. Currently?on?FMLA?leave. He?b riefly?discussed?that?he?is?thinking?about?switching?to?intermittent?leave.??Augustine l?discuss?further?at?next?appointment He?will?follow-up?with?me?again?in?a?month (2) Nicotine dependence: Code(s): F17.200 - Nicotine dependence, unspecified, uncomplicated Plan: Patient?has?stopped?smoking?and?switched?to?vaping. Consult?patient?regarding?vaping Encouraged?weaning?and?cessation. Coding Level of Care Code Est Pt Level 3 (13463) Diagnoses Anxiety and depression F41.9; F32.A Nicotine dependence F17.200 Additional Codes JANUARY-7 Assessment Billing - JANUARY-7 Assessment Tool: JANUARY-7 Assessment 03162 ([id number])
[2024-01-09 10:26] VITALS: BP 116/80; PULSE 70; RESP 16; TEMP 36.1; O2SAT 95; BMI 27.6
== END 2024-01-09 10:50 | disposition home or self-care (01) ==
PROVIDERS: PCP Family Medicine; Visit Provider Family Medicine
DX: F41.9 Anxiety disorder, unspecified (principal); F32.A Depression, unspecified; F17.200 Nicotine dependence, unspecified, uncomplicated

== ENCOUNTER → 2024-01-09 09:34 | Outpatient (BNVA) | payer BC, SELFPAY | PROVIDERS: PCP Family Medicine; Visit Provider Family Medicine | DX: F41.9 Anxiety disorder, unspecified (principal); F32.A Depression, unspecified; F17.200 Nicotine dependence, unspecified, uncomplicated; Z79.899 Other long term (current) drug therapy | CPT/HCPCS: 96127 ==

== ENCOUNTER 2024-01-11 12:38 | Outpatient (AMB) | payer BC, SELFPAY ==
--- NOTE | 2024-01-11 12:58 | MHC.OFFVISPS ---
Intake Intake Visit Reasons: CONSULTATION Rn Cardiology Required: No Allergies No Known Allergies [No Known Allergies*] Allergy (Verified 01/09/24 10:22) Medication List - Last Reconciled 01/11/24 by Carol Rodriges APRN alprazolam 0.5 mg PO DAILY 30 days ibuprofen 800 mg PO Q8H PRN 14 days HPI- Psychiatric Chief Complaint: CONSULTATION HPI Narrative: pt refered by pcp for evaluation of anxiety; pt reports a very long hx of anxeity with very little to no relief; He reports not doign well in school as a young teen and his mother brought him to see therapist and psychiatrist; he was put on prozac and became suicidal - this wa shis first admission - he overdose on a large amount of various pills in his home - went to ICU and then in psych; he was hospitalized many times at [facility] inpatient psych over the years and went to [facility] there several times- last time being 2022. He has had many trial of medications that failed including prozac, remeron. celexa, zoloft, seroquel, ad abilify; he says the only medication he has gotten relief from is xanax and he used to be on xanax 1mg BID. He reports his father suicided by shooting himself and pt found him - he thinks that his father was very medically ill and afraid of losing independence; despite him understanding this he has intrusive memories and flashbacks of finding him. Pt reports he is constantly worried he is going to of a medical problem and thinks constantly about heart attack stroke, aneurysm. He denies current SI or HI. Past Psychiatric History: 4-5 [facility]. 2-3 [facility] , current therapist is Warren Peraza in [facility] Subjective Subjective Subjective Medication Compliance: Yes Side effects from medications: No Review of Systems Medical Review of Systems: unchanged Mental Status Exam Mental Status Exam Patient Appearance: Well Grooomed and Appropriate Patient Orientation: Person, Place, Time and Situation Level of Consciousness: Awake and Appropriate Patient Behavior: Appropriate Mood Description: Anxious Affect Description: Anxious Patient Cognition Impaired: No Ability to Follow Directions: Good Speech Pattern: Clear Memory Description: Intact Hallucinations: None Delusions: Not Present Perceptual Disturbances: Depersonalization Thought Process: Intact Thought Content: positive for Intact Judgement: Fair Assessment and Plan Assessment & Plan (1) Generalized anxiety disorder with panic attacks: Status: Acute Code(s): F41.1 - Generalized anxiety disorder; F41.0 - Panic disorder [episodic paroxysmal anxiety] Plan trial oflow dose lamictal titrate 12.5 mg daily x 14 days then 25 mg daily x 14 days then 50mg daily continue with xanax 0.5mg daily prn panic Medications: New lamotrigine (Lamictal) 25 mg orally take 1/2 tablet daily x 14 days then take 25 mg daily x 14 days then take 2 tablets daily (50mg); 60 tabs 0RF Refilled alprazolam 20 tabs per 30 days. [facility] verified. Partial refill upon request. 0.5 mg PO DAILY 20 tabs 0RF 30 days M54.9 - Dorsalgia, unspecified Counseling and coordination of Care Pt. Self Management counseling: Maintenance-social rhythm, Mod caffeine/ETOH intake, Sleep hygiene, Behavior activation, Cognitive restructuring, General coping skills and Problem solving Medication management counseling: Effectiveness, Side effects, Dosing range, Duration, Drug interaction and Adherence Diagnosis and Prognosis Counseling: Accuracy of diagnosis, Prognosis over time, Impact of diagnosis on life functions, Impact of family relationship, Problematic behaviors secondary to diagnosis and Adequacy of current interventions Details: I spent 75 minutes reviewing the record, seeing the patient and documenting in the medical record. Counseling provided to the patient/caregiver as outlined below. Addressed patient/caregiver concerns regarding current medication regime including effective adherence. Addressed patient/caregiver concerns regarding diagnosis and prognosis including accuracy of diagnosis, prognosis over time, impact of diagnosis. Addressed patient/caregiver concerns regarding impact of recent stressors. [facility] Medical History Lower back pain Surgical History History of elbow surgery Family History Father CVD (cardiovascular disease) Myocardial infarction Mental health disorder Mother Mental health disorder Brother No problems noted. Sister Mental health disorder Sister No problems noted. Son No problems noted. Son No problems noted. Social History Housing: House Alcohol intake: never Patient Tobacco Use Status: Current everyday Tobacco user Tobacco use type: Cigarette Cigarette Packs Per Day: 1 Cigarettes Per Day: 15 e-Cigarette/Vaping Use: Never Used Second Hand Smoke Exposure: Yes service: No Current occupational status: employed Cognitive needs: No Hearing needs: No Vision needs: Yes (Glasses) Social History: grew up in [place] with M& F and 2 sisters and 1 brother- pt is youngest; pt had trouble learning in school he was disengaged. Substance History: THC stopped 8 yrs ago, ETOH - none Trauma History: yes Coding Level of Care Code Psych Diag Eval w/Med (50346) Diagnoses Generalized anxiety disorder with panic attacks F41.1; F41.0
== END 2024-01-11 13:54 | disposition home or self-care (01) ==
LOC: HO.HOP 12:38
PROVIDERS: PCP Family Medicine; Visit Provider Clinical Nurse Specialist Psychiatric/Mental Health
DX: F41.1 Generalized anxiety disorder (principal); F41.0 Panic disorder [episodic paroxysmal anxiety]
CPT/HCPCS: 90792

== ENCOUNTER → 2024-01-11 12:38 | Outpatient (BNVA) | payer BC, SELFPAY | PROVIDERS: PCP Family Medicine; Visit Provider Clinical Nurse Specialist Psychiatric/Mental Health | DX: F41.1 Generalized anxiety disorder (principal); F41.0 Panic disorder [episodic paroxysmal anxiety]; Z79.899 Other long term (current) drug therapy | CPT/HCPCS: 90792 ==

== ENCOUNTER 2024-02-02 13:32 | Outpatient (AMB) | payer BC, SELFPAY ==
--- NOTE | 2024-02-02 13:53 | MHC.PC.OV ---
Vital Signs 02/02/24 13:54 Height 5 ft 9 in Weight 187 lb 8 oz BMI 27.7 BP 108/59 L Blood Pressure Location Lt brachial Position Sitting Respiration 16 Pulse 75 Pulse Source Pulse Oximeter Temp 98.1 F Temp Source Temporal Artery Scan Pulse Oximetry (%) 95 Oxygen Delivery Method Room Air Intake Visit Reasons: est/ fmla paperwork Intake Note: FMLA PAPERWORK Allergies No Known Allergies [No Known Allergies*] Allergy (Verified 02/02/24 13:54) Tobacco use date assessed: 08/17/23 Dental Screening Dental Screen Date: 09/12/23 HPI est/ fmla paperwork HPI Details Patient?presents?requesting update?of?his?FMLA?paperwork. Ongoing?severe?anxiety?and?depression?with?panic?disorder.??He?is?now?followed?by?[facility].??They?have?started?lamotrigine?which?he?says?has?not?been?helping?much?but?is?not?causing?adverse?effects.??They?are?titrating?this?up?slowly. Had?kept?him?out?since?December?and?end?date?was?January?. Patient?is?still?quite?symptomatic?and?treatment?is?ongoing. Changing?end?date??March?. [facility] Medical History Lower back pain Surgical History History of elbow surgery Family History Father CVD (cardiovascular disease) Myocardial infarction Mental health disorder Mother Mental health disorder Brother No problems noted. Sister Mental health disorder Sister No problems noted. Son No problems noted. Son No problems noted. Social History Housing: House Alcohol intake: never Patient Tobacco Use Status: Current everyday Tobacco user Tobacco use type: Cigarette Cigarette Packs Per Day: 1 Cigarettes Per Day: 15 e-Cigarette/Vaping Use: Never Used Second Hand Smoke Exposure: Yes service: No Current occupational status: employed Cognitive needs: No Hearing needs: No Vision needs: Yes (Glasses) Questionnaire PHQ-9 Over the last 2 weeks, how often have you been bothered by any of the following problems? 1. Little interest or pleasure in doing things: more than half the days 2. Feeling down, depressed, or hopeless: more than half the days 3. Trouble falling or staying asleep, or sleeping too much: nearly every day 4. Feeling tired or having little energy: nearly every day 5. Poor appetite or overeating: not at all 6. Feeling bad about yourself - or that you are a failure or have let yourself or your family down: nearly every day 7. Trouble concentrating on things, such as reading the newspaper or watching television: not at all 8. Moving or speaking so slowly that other people could have noticed. Or the opposite - being so fidgety or restless that you have been moving around a lot more than usual: not at all 9. Thoughts that you would be better off or of hurting yourself in some way: not at all Total score: 13 Depression Screening Interpretation: Positive Depression Screening Done: Yes [id number] - PHQ-9 Billing: Yes Source: Developed by Drs. Gelacio Enriquez, Pretty Ricks, Betito Ramirez and colleagues, with an educational bhumika from [employer]. Thrive Questionnaire Date Thrive assessed: 10/26/21 I am a: Patient What is your living situation today?: I have a steady place to live Within the past 12 months, did the food you bought not last and you didn't have the money to get more?: Never true Within the past 12 months, did you worry whether your food would run out before you got money to buy more?: Never true Do you have trouble paying for medicines?: No Do you have trouble getting transportation to medical appointments?: No Do you have trouble paying your heating and electricity bill?: No Do you have trouble taking care of your child, family member or friend?: No Do you have trouble with day-to-day activities such as bathing, preparing meals, shopping, managing finances, etc.?: No Are you currently unemployed and looking for a job?: No Are you interested in more education?: No Please select the resources that you would like help with: None Currently or been in a relationship where the following occur: No concerns reported THRIVE Score: 0 AUDIT C Alcohol Use Questionnaire (AUDIT-C) 1. How often do you have a drink containing alcohol?: Never Total Score: 0 JANUARY-7 AMB Questionnaire JANUARY-7 Date JANUARY - 7 assessed: 01/09/24 Feeling nervous, anxious, or on edge: 3 = Nearly every day Not being able to stop or control worryin = Nearly every day Worrying too much about different things: 3 = Nearly every day Trouble relaxin = Nearly every day Being so restless that it is hard to sit still: 2 = More than half the days Becoming easily annoyed or irritable: 0 = Not at all Feeling afraid as if something awful might happen: 3 = Nearly every day Total JANUARY-7 score (0-4 normal; 5-9 mild; 10-14 moderate; 15-21 severe): 17 Source: Developed by Drs. Gelacio Enriquez, Pretty Ricks, Betito Ramirez and colleagues, with an educational bhumika from [employer]. JANUARY-7 Assessment Billing JANUARY-7 Assessment Tool: JANUARY-7 Assessment 98342 Review of Systems Const Denies chills, Denies fatigue, Denies fever(s), Denies headache(s) and Denies weakness ENT Denies dizziness and Denies headache(s) Card Denies chest pain, Denies lightheadedness, Denies dyspnea and Denies other (Palpitations) Resp Denies cough, Denies dyspnea, Denies wheezing and Denies other ( shortness of breath) Musc Denies numbness and Denies tingling Neuro Denies dizziness, Denies headache(s), Denies numbness, Denies tingling, Denies paresthesias and Denies weakness Psych Reports anxiety and Reports depression Endo Denies fatigue Aller/Immun Denies wheezing Physical exam (Primary Care) Vital Signs: Last Vital Signs Temp 98.1 F 02/02/24 13:54 Pulse 75 02/02/24 13:54 Resp 16 02/02/24 13:54 BP 108/59 L 02/02/24 13:54 Pulse Ox 95 02/02/24 13:54 Oxygen Delivery Method Room Air 02/02/24 13:54 BMI result Body Mass Index 27.7 Tobacco/Smoking Status: Tobacco use Status Tobacco use date assessed 08/17/23 02/02/24 13:56 Patient Tobacco Use Status Current everyday Tobacco 02/02/24 13:56 Tobacco use type Cigarette 02/02/24 13:56 e-Cigarette/Vaping Use Never Used 02/02/24 13:56 PHQ-9: PHQ-9 Score PHQ-9: Total score 13 02/02/24 13:56 Depression Screening Interpretation: Positive Thrive Assessment: Date of Thrive Assessment Date Thrive assessed 10/26/21 02/02/24 13:56 Currently or been in a relationship where the following occur: No concerns reported Const General: no acute distress and well developed Nutritional Appearance: well nourished Orientation/consciousness: patient oriented x3 HENMT Head: Yes normocephalic and Yes atraumatic Eyes General: appearance normal, both eyes and all related structures Pupils: Equal, round and reactive pupils present EOM: EOMs intact bilaterally Resp Effort & Inspection: normal respiratory effort Auscultation: clear to auscultation bilaterally Cardio Rate: regular rate Rhythm: regular rhythm Heart sounds: S1 normal heart sound present, S2 normal heart sound present, no gallops, no murmurs and no rubs Neuro General: patient oriented x3 and gait normal Cranial nerves: Yes Equal, round and reactive pupils present Psych Other: Depressed,?anxious?affect Affect: Anxious affect present Coding Level of Care Code Est Pt Level 3 (14953) Diagnoses Generalized anxiety disorder with panic attacks F41.1; F41.0 Additional Codes JANUARY-7 Assessment Billing - JANUARY-7 Assessment Tool: JANUARY-7 Assessment [id number] ([id number]) Assessment & Plan Assessment & Plan (1) Generalized anxiety disorder with panic attacks: Code(s): F41.1 - Generalized anxiety disorder; F41.0 - Panic disorder [episodic paroxysmal anxiety] Category: Medical Plan: Severe?generalized?anxiety?with?panic?attacks. Had?filled?out?FMLA?paperwork?for?patient?from?December??through?January?. I?am?extending?this. FMLA?paperwork?filled?out?from?12/20/2023?through?03/17/2024. He?is?now?followed?by?[facility]?psychiatry?consult?team?and?they?have?started?lamotrigine?which?they?have?been?titrating?up. Patient?denies?any?adverse?affects?from?this?medication?but?also?notes?that?he?has?not?had?much?benefit?yet. Continues?Xanax?as?well. Has?upcoming?appointment?with?psychiatry?team.??Follow-up?as?recommended
[2024-02-02 13:54] VITALS: BP 108/59; PULSE 75; RESP 16; TEMP 36.7; O2SAT 95; BMI 27.7
== END 2024-02-02 14:48 | disposition home or self-care (01) ==
PROVIDERS: PCP Family Medicine; Visit Provider Family Medicine
DX: F41.1 Generalized anxiety disorder (principal); F41.0 Panic disorder [episodic paroxysmal anxiety]

== ENCOUNTER → 2024-02-02 13:32 | Outpatient (BNVA) | payer BC, SELFPAY | PROVIDERS: PCP Family Medicine; Visit Provider Family Medicine | DX: F41.1 Generalized anxiety disorder (principal); F41.0 Panic disorder [episodic paroxysmal anxiety] | CPT/HCPCS: 96127 ==

== ENCOUNTER 2024-02-22 11:34 | Outpatient (AMB) | payer BC, SELFPAY ==
--- NOTE | 2024-02-22 11:39 | MHC.OFFVISPS ---
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 Allergies No Known Allergies [No Known Allergies*] Allergy (Verified 02/02/24 13:54) Medication List - Last Reconciled 02/22/24 by Carol Rodriges APRN alprazolam 0.5 mg PO DAILY 30 days ibuprofen 800 mg PO Q8H PRN 14 days lamotrigine (Lamictal) 25 mg orally take 1/2 tablet daily x 14 days then take 25 mg daily x 14 days then take 2 tablets daily (50mg); HPI- Psychiatric Chief Complaint: follow up HPI Narrative: no change in anxiety; tolerating the lamictal but no relief yet; no rash, pt reports transient feelings of weakness/slight dizziness since starting it; also having very vivid dreams including a few nightmares. no other changes. eating well and reports staying hydrated Past Psychiatric History: 4-5 [facility]. 2-3 PHP , current therapist is Warren Peraza in [facility] Subjective Subjective Subjective Medication Compliance: Yes Side effects from medications: No Review of Systems Medical Review of Systems: unchanged Mental Status Exam Mental Status Exam Patient Appearance: Well Grooomed Patient Orientation: Person, Place, Time and Situation Level of Consciousness: Awake Patient Behavior: Appropriate Mood Description: Anxious Affect Description: Anxious Patient Cognition Impaired: No Ability to Follow Directions: Good Speech Pattern: Clear Memory Description: Intact Hallucinations: None Delusions: Not Present Thought Process: Intact Thought Content: positive for Intact Judgement: Fair Assessment and Plan Assessment & Plan (1) Generalized anxiety disorder with panic attacks: Status: Acute Code(s): F41.1 - Generalized anxiety disorder; F41.0 - Panic disorder [episodic paroxysmal anxiety] Assessment and Plan: rule out PTSD Plan increase lamictal to 100 mg daily labs to rule out medical etiology to weakness/dizziness Medications: New lamotrigine (Lamictal) 100 mg PO DAILY 90 tabs 1RF Changed From alprazolam 20 tabs per 30 days. [facility] verified. Partial refill upon request. 0.5 mg PO DAILY 30 days 20 tabs 0RF M54.9 - Dorsalgia, unspecified To alprazolam 0.5 mg PO DAILY 30 days 30 tabs 1RF M54.9 - Dorsalgia, unspecified Discontinued lamotrigine (Lamictal) Discontinued Reason: Doctor's Order 25 mg orally take 1/2 tablet daily x 14 days then take 25 mg daily x 14 days then take 2 tablets daily (50mg); 60 tabs 0RF Orders: Orders Complete Blood Count Auto Diff Today F41.0 - Panic disorder [episodic paroxysmal anxiety], F41.1 - Generalized anxiety disorder Comprehensive [place]. Panel Fast Today F41.0 - Panic disorder [episodic paroxysmal anxiety], F41.1 - Generalized anxiety disorder TSH reflex Free T4 Today F41.0 - Panic disorder [episodic paroxysmal anxiety], F41.1 - Generalized anxiety disorder Lipid Panel Today F41.0 - Panic disorder [episodic paroxysmal anxiety], F41.1 - Generalized anxiety disorder Vitamin B12 Today F41.0 - Panic disorder [episodic paroxysmal anxiety], F41.1 - Generalized anxiety disorder Folate Today F41.0 - Panic disorder [episodic paroxysmal anxiety], F41.1 - Generalized anxiety disorder Magnesium Today F41.0 - Panic disorder [episodic paroxysmal anxiety], F41.1 - Generalized anxiety disorder Counseling and coordination of Care Pt. Self Management counseling: Maintenance-social rhythm, Mod caffeine/ETOH intake, Nutrition education and improvement, Sleep hygiene, Behavior activation, General coping skills and Problem solving Medication management counseling: Effectiveness, Side effects, Dosing range, Duration, Drug interaction and Adherence Diagnosis and Prognosis Counseling: Accuracy of diagnosis, Prognosis over time, Impact of diagnosis on life functions, Impact of family relationship, Problematic behaviors secondary to diagnosis and Adequacy of current interventions Details: I spent 40 minutes reviewing the record, seeing the patient and documenting in the medical record. Counseling provided to the patient/caregiver as outlined below. Addressed patient/caregiver concerns regarding current medication regime including effective adherence. Addressed patient/caregiver concerns regarding diagnosis and prognosis including accuracy of diagnosis, prognosis over time, impact of diagnosis. Addressed patient/caregiver concerns regarding impact of recent stressors. [facility] Medical History Lower back pain Surgical History History of elbow surgery Family History Father CVD (cardiovascular disease) Myocardial infarction Mental health disorder Mother Mental health disorder Brother No problems noted. Sister Mental health disorder Sister No problems noted. Son No problems noted. Son No problems noted. Social History Housing: House Alcohol intake: never Patient Tobacco Use Status: Current everyday Tobacco user Tobacco use type: Cigarette Cigarette Packs Per Day: 1 Cigarettes Per Day: 15 e-Cigarette/Vaping Use: Never Used Second Hand Smoke Exposure: Yes service: No Current occupational status: employed Cognitive needs: No Hearing needs: No Vision needs: Yes (Glasses) Social History: grew up in [place] with M& F and 2 sisters and 1 brother- pt is youngest; pt had trouble learning in school he was disengaged. Substance History: THC stopped 8 yrs ago, ETOH - none Trauma History: yes Coding Level of Care Code Est Pt Level 4 (54395) Diagnoses Generalized anxiety disorder with panic attacks F41.1; F41.0
== END 2024-02-22 16:23 | disposition home or self-care (01) ==
LOC: HO.HOP 11:34
PROVIDERS: PCP Family Medicine; Visit Provider Clinical Nurse Specialist Psychiatric/Mental Health
DX: F41.1 Generalized anxiety disorder (principal); F41.0 Panic disorder [episodic paroxysmal anxiety]
CPT/HCPCS: 99214

== ENCOUNTER → 2024-02-22 11:34 | Outpatient (BNVA) | payer BC, SELFPAY | PROVIDERS: PCP Family Medicine; Visit Provider Clinical Nurse Specialist Psychiatric/Mental Health ==

== ENCOUNTER 2024-02-29 15:30 | Outpatient (AMB) | payer BC, SELFPAY ==
--- NOTE | 2024-02-29 16:12 | MHC.PC.OV ---
Vital Signs 02/29/24 16:18 Height 5 ft 9 in Weight 189 lb 8 oz BMI 28.0 BP 108/70 Blood Pressure Location Lt brachial Position Sitting Respiration 16 Pulse 74 Pulse Source Pulse Oximeter Temp 97.9 F Temp Source Oral Pulse Oximetry (%) 98 Oxygen Delivery Method Room Air Intake Visit Reasons: f/u anxiety/depression Intake Note: f/u anxiety and depression Allergies No Known Allergies [No Known Allergies*] Allergy (Verified 02/02/24 13:54) Tobacco use date assessed: 08/17/23 Dental Screening Dental Screen Date: 09/12/23 HPI f/u anxiety/depression HPI Details 49 y/o male presents to f/u anxiety/depression. Reports ongoing issues with sleeping. He notes he is going back to work March and still feels stresed out about it. Continues using lamotrigine. Also on alprazolam 0.5mg daily. PHQ-9 9, JANUARY-7 13 today. [facility] Medical History Lower back pain Surgical History History of elbow surgery Family History Father CVD (cardiovascular disease) Myocardial infarction Mental health disorder Mother Mental health disorder Brother No problems noted. Sister Mental health disorder Sister No problems noted. Son No problems noted. Son No problems noted. Social History Housing: House Alcohol intake: never Patient Tobacco Use Status: Current everyday Tobacco user Tobacco use type: Cigarette Cigarette Packs Per Day: 1 Cigarettes Per Day: 15 e-Cigarette/Vaping Use: Never Used Second Hand Smoke Exposure: Yes service: No Current occupational status: employed Cognitive needs: No Hearing needs: No Vision needs: Yes (Glasses) Questionnaire PHQ-9 Over the last 2 weeks, how often have you been bothered by any of the following problems? 1. Little interest or pleasure in doing things: several days 2. Feeling down, depressed, or hopeless: several days 3. Trouble falling or staying asleep, or sleeping too much: nearly every day 4. Feeling tired or having little energy: not at all 5. Poor appetite or overeating: not at all 6. Feeling bad about yourself - or that you are a failure or have let yourself or your family down: more than half the days 7. Trouble concentrating on things, such as reading the newspaper or watching television: not at all 8. Moving or speaking so slowly that other people could have noticed. Or the opposite - being so fidgety or restless that you have been moving around a lot more than usual: more than half the days 9. Thoughts that you would be better off or of hurting yourself in some way: not at all Total score: 9 Source: Developed by Drs. Gelacio Enriquez, Pretty Ricks, Betito Ramirez and colleagues, with an educational bhumika from [employer]. Thrive Questionnaire Date Thrive assessed: 02/02/24 I am a: Patient What is your living situation today?: I have a steady place to live Within the past 12 months, did the food you bought not last and you didn't have the money to get more?: Never true Within the past 12 months, did you worry whether your food would run out before you got money to buy more?: Never true Do you have trouble paying for medicines?: No Do you have trouble getting transportation to medical appointments?: No Do you have trouble paying your heating and electricity bill?: No Do you have trouble taking care of your child, family member or friend?: No Do you have trouble with day-to-day activities such as bathing, preparing meals, shopping, managing finances, etc.?: No Are you currently unemployed and looking for a job?: No Are you interested in more education?: No Please select the resources that you would like help with: None Currently or been in a relationship where the following occur: No concerns reported THRIVE Score: 0 JANUARY-7 AMB Questionnaire JANUARY-7 Date JANUARY - 7 assessed: 02/29/24 Feeling nervous, anxious, or on edge: 3 = Nearly every day Not being able to stop or control worryin = Nearly every day Worrying too much about different things: 3 = Nearly every day Trouble relaxin = Several days Being so restless that it is hard to sit still: 0 = Not at all Becoming easily annoyed or irritable: 0 = Not at all Feeling afraid as if something awful might happen: 3 = Nearly every day Total JANUARY-7 score (0-4 normal; 5-9 mild; 10-14 moderate; 15-21 severe): 13 Source: Developed by Drs. Gelacio Enriquez, Pretty Ricks, Betito Ramirez and colleagues, with an educational bhumika from [employer]. JANUARY-7 Assessment Billing JANUARY-7 Assessment Tool: JANUARY-7 Assessment [id number] Review of Systems Const Denies chills, Denies fatigue, Denies fever(s), Denies headache(s) and Denies weakness ENT Denies dizziness and Denies headache(s) Card Denies dyspnea Resp Denies cough, Denies dyspnea, Denies wheezing and Denies other (shortness of breath) Musc Denies numbness and Denies tingling Neuro Denies dizziness, Denies headache(s), Denies numbness, Denies tingling and Denies weakness Psych Reports anxiety and Reports depression Endo Denies fatigue Aller/Immun Denies wheezing Physical exam (Primary Care) Vital Signs: Last Vital Signs Temp 97.9 F 02/29/24 16:18 Pulse 74 02/29/24 16:18 Resp 16 02/29/24 16:18 BP 108/70 02/29/24 16:18 Pulse Ox 98 02/29/24 16:18 Oxygen Delivery Method Room Air 02/29/24 16:18 BMI result Body Mass Index 28.0 Tobacco/Smoking Status: Tobacco use Status Tobacco use date assessed 08/17/23 02/29/24 16:21 Patient Tobacco Use Status Current everyday Tobacco 02/29/24 16:21 Tobacco use type Cigarette 02/29/24 16:21 e-Cigarette/Vaping Use Never Used 02/29/24 16:21 PHQ-9: PHQ-9 Score PHQ-9: Total score 9 02/29/24 16:21 Thrive Assessment: Date of Thrive Assessment Date Thrive assessed 02/02/24 02/29/24 16:21 Currently or been in a relationship where the following occur: No concerns reported Const General: well developed; No acute distress Nutritional Appearance: well nourished Orientation/consciousness: patient oriented x3 HENMT Head: Yes normocephalic and Yes atraumatic Eyes General: appearance normal, both eyes and all related structures Pupils: Equal, round and reactive pupils present EOM: EOMs intact bilaterally Resp Effort & Inspection: normal respiratory effort Auscultation: clear to auscultation bilaterally Cardio Rate: regular rate Rhythm: regular rhythm Heart sounds: S1 normal heart sound present, S2 normal heart sound present, no gallops, no murmurs and no rubs Neuro General: patient oriented x3 and gait normal Cranial nerves: Yes Equal, round and reactive pupils present Psych Affect: normal affect Coding Level of Care Code Est Pt Level 3 (37657) Diagnoses Generalized anxiety disorder with panic attacks F41.1; F41.0 Additional Codes JANUARY-7 Assessment Billing - JANUARY-7 Assessment Tool: JANUARY-7 Assessment [id number] ([id number]) Assessment & Plan Assessment & Plan (1) Generalized anxiety disorder with panic attacks: Code(s): F41.1 - Generalized anxiety disorder; F41.0 - Panic disorder [episodic paroxysmal anxiety] Category: Medical Plan: Patient?recently?had?appointment?with?the?[facility]outpatient[facility]psych?team His?lamotrigine?was?increased He?says?he?is?now?starting?to?notice?some?improvement Continue?current?medication?regimen?and?follow-up?with?psych?team?as?recommended Encouraged?regular?exercise?but?not?too?close?to?bedtime Orders: Orders Prostate Specific Antigen Scr 2 Months Z12.5 - Encounter for screening for malignant neoplasm of prostate Comprehensive [place]. Panel Fast 2 Months Z00.00 - Encounter for general adult medical examination without abnormal findings Lipid Panel 2 Months Z00.00 - Encounter for general adult medical examination without abnormal findings Microalbumin, Random (w Creat) 2 Months I10 - Essential (primary) hypertension TSH reflex Free T4 2 Months Z00.00 - Encounter for general adult medical examination without abnormal findings UA and rflx microscopic 2 Months Z00.00 - Encounter for general adult medical examination without abnormal findings Complete Blood Count Auto Diff 2 Months Z00.00 - Encounter for general adult medical examination without abnormal findings
[2024-02-29 16:18] VITALS: BP 108/70; PULSE 74; RESP 16; TEMP 36.6; O2SAT 98; BMI 28.0
== END 2024-02-29 17:06 | disposition home or self-care (01) ==
PROVIDERS: PCP Family Medicine; Visit Provider Family Medicine
DX: F41.1 Generalized anxiety disorder (principal); F41.0 Panic disorder [episodic paroxysmal anxiety]

== ENCOUNTER → 2024-02-29 15:30 | Outpatient (BNVA) | payer BC, SELFPAY | PROVIDERS: PCP Family Medicine; Visit Provider Family Medicine | DX: F41.1 Generalized anxiety disorder (principal); F41.0 Panic disorder [episodic paroxysmal anxiety]; Z79.899 Other long term (current) drug therapy | CPT/HCPCS: 96127 ==

== ENCOUNTER 2024-03-28 15:25 | Outpatient (AMB) | payer BC, SELFPAY ==
--- NOTE | 2024-03-28 15:41 | MHC.OFFVISPS ---
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 Allergies No Known Allergies [No Known Allergies*] Allergy (Verified 02/02/24 13:54) Medication List - Last Reconciled 03/28/24 by Carol Rodriges APRN alprazolam 0.5 mg PO DAILY 30 days ibuprofen 800 mg PO Q8H PRN 14 days lamotrigine (Lamictal) 100 mg PO DAILY HPI- Psychiatric Chief Complaint: f/u consultation HPI Narrative: Pt reports he is very anxious; He is not sleeping; He states he tried to go back to work but was not able to stay there due to anxiety; he reports depresson, not able to fall sleep, feeling tired all the time, feeling abd about self, He is anxious and tense frequently, he can't stop worrying, He can not relax He constantly feels something bad will happen. he reports passive SI . He denies paln or intent Past Psychiatric History: 4-5 [facility]. 2-3 [facility] , current therapist is Warren Peraza in [facility] Subjective Subjective Subjective Medication Compliance: No Side effects from medications: Yes Review of Systems Medical Review of Systems: unchanged Mental Status Exam Mental Status Exam Patient Appearance: Fatigued, Disheveled and Appropriate Patient Orientation: Person, Place, Time and Situation Level of Consciousness: Appropriate Patient Behavior: Appropriate Mood Description: Depressed and Anxious Affect Description: Depressed and Anxious Patient Cognition Impaired: No Ability to Follow Directions: Good Speech Pattern: Clear Memory Description: Intact Hallucinations: None Delusions: Not Present Thought Content: positive for Preoccupation Judgement: Fair Assessment and Plan Assessment & Plan (1) Generalized anxiety disorder with panic attacks: Status: Acute Code(s): F41.1 - Generalized anxiety disorder; F41.0 - Panic disorder [episodic paroxysmal anxiety] (2) Insomnia: Status: Acute Qualifiers: Insomnia type: due to other mental disorder Qualified Code(s): F51.05 - Insomnia due to other mental disorder; F99 - Mental disorder, not otherwise specified Code(s): G47.00 - Insomnia, unspecified Plan trial of hydroxyzine to help with sleep continue lamictal and low dose xanax prn Medications: New hydroxyzine HCl 25 mg orally take one tab at bedtime and may repeat x 1 if still awake in one hour PRN; 60 tabs 0RF insomnia Refilled alprazolam 0.5 mg PO DAILY 30 tabs 1RF 30 days M54.9 - Dorsalgia, unspecified lamotrigine (Lamictal) 100 mg PO DAILY 90 tabs 1RF Counseling and coordination of Care Pt. Self Management counseling: Sleep hygiene, General coping skills and Problem solving Medication management counseling: Effectiveness, Side effects, Dosing range, Duration, Drug interaction and Adherence Diagnosis and Prognosis Counseling: Accuracy of diagnosis, Prognosis over time, Impact of diagnosis on life functions, Impact of family relationship, Problematic behaviors secondary to diagnosis and Adequacy of current interventions Details: I spent 40 minutes reviewing the record, seeing the patient and documenting in the medical record. Counseling provided to the patient/caregiver as outlined below. Addressed patient/caregiver concerns regarding current medication regime including effective adherence. Addressed patient/caregiver concerns regarding diagnosis and prognosis including accuracy of diagnosis, prognosis over time, impact of diagnosis. Addressed patient/caregiver concerns regarding impact of recent stressors. [facility] Medical History Lower back pain Surgical History History of elbow surgery Family History Father CVD (cardiovascular disease) Myocardial infarction Mental health disorder Mother Mental health disorder Brother No problems noted. Sister Mental health disorder Sister No problems noted. Son No problems noted. Son No problems noted. Social History Housing: House Alcohol intake: never Patient Tobacco Use Status: Current everyday Tobacco user Tobacco use type: Cigarette Cigarette Packs Per Day: 1 Cigarettes Per Day: 15 e-Cigarette/Vaping Use: Never Used Second Hand Smoke Exposure: Yes service: No Current occupational status: employed Cognitive needs: No Hearing needs: No Vision needs: Yes (Glasses) Social History: grew up in [place] with M& F and 2 sisters and 1 brother- pt is youngest; pt had trouble learning in school he was disengaged. Substance History: THC stopped 8 yrs ago, ETOH - none Trauma History: yes Coding Level of Care Code Est Pt Level 4 (76347) Therapy 30m w/E&M (81507) Diagnoses Generalized anxiety disorder with panic attacks F41.1; F41.0 Insomnia due to other mental disorder F51.05; F99 Insomnia type: due to other mental disorder
== END 2024-03-28 15:58 | disposition home or self-care (01) ==
LOC: HO.HOP 15:25
PROVIDERS: PCP Family Medicine; Visit Provider Clinical Nurse Specialist Psychiatric/Mental Health
DX: F41.1 Generalized anxiety disorder (principal); F41.0 Panic disorder [episodic paroxysmal anxiety]; F51.05 Insomnia due to other mental disorder; F99 Mental disorder, not otherwise specified
CPT/HCPCS: 90833; 99214

== ENCOUNTER 2024-04-05 12:41 | Outpatient (AMB) | payer BC, SELFPAY ==
--- NOTE | 2024-04-05 12:49 | A.OFFPC_ITS ---
Vital Signs 04/05/24 12:53 Height 5 ft 9 in Weight 195 lb 4 oz BMI 28.8 BP 110/70 Blood Pressure Location Lt brachial Position Sitting Respiration 16 Pulse 92 Pulse Source Pulse Oximeter Pulse Oximetry (%) 94 Oxygen Delivery Method Room Air Intake Visit Reasons: fmla paperwork Intake Note: restart fmla anxiety and depression and sleep disorder Allergies No Known Allergies [No Known Allergies*] Allergy (Verified 04/05/24 12:51) Tobacco use date assessed: 08/17/23 Dental Screening Dental Screen Date: 09/12/23 HPI fmla paperwork HPI Details 49 y/o male presents for FMLA paperwork. Had tried to go back to work for a week but states mood has taken a turn for the worse regarding his mood and insomnia. 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 States he has felt medication regimen has worked well for him until he had went back to work. Reports he had been so frustrated about lack of sleep he had reported SI. Denies any plan He has his girlfriend to talk to. HPI Comments History of Present Illness Details Documentation assistance for Tra Blackburn MD, was provided by Jose Moran,? [employer] on 04/05/2024 at 1:19 PM EST. I, Dr. Blackburn, have read, observed, and verified documentation. [facility] Medical History Lower back pain Surgical History History of elbow surgery Family History Father CVD (cardiovascular disease) Myocardial infarction Mental health disorder Mother Mental health disorder Brother No problems noted. Sister Mental health disorder Sister No problems noted. Son No problems noted. Son No problems noted. Social History Housing: House Alcohol intake: never Patient Tobacco Use Status: Current everyday Tobacco user Tobacco use type: Cigarette Cigarette Packs Per Day: 1 Cigarettes Per Day: 15 e-Cigarette/Vaping Use: Never Used Second Hand Smoke Exposure: Yes service: No Current occupational status: employed Cognitive needs: No Hearing needs: No Vision needs: Yes (Glasses) Questionnaire Thrive Questionnaire Date Thrive assessed: 02/02/24 I am a: Patient What is your living situation today?: I have a steady place to live Within the past 12 months, did the food you bought not last and you didn't have the money to get more?: Never true Within the past 12 months, did you worry whether your food would run out before you got money to buy more?: Never true Do you have trouble paying for medicines?: No Do you have trouble getting transportation to medical appointments?: No Do you have trouble paying your heating and electricity bill?: No Do you have trouble taking care of your child, family member or friend?: No Do you have trouble with day-to-day activities such as bathing, preparing meals, shopping, managing finances, etc.?: No Are you currently unemployed and looking for a job?: No Are you interested in more education?: No Please select the resources that you would like help with: None Currently or been in a relationship where the following occur: No concerns reported THRIVE Score: 0 JANUARY-7 AMB Questionnaire JANUARY-7 Date JANUARY - 7 assessed: 02/29/24 Source: Developed by Drs. Gelacio Enriquez, Pretty Ricks, Betito Ramirez and colleagues, with an educational bhumika from [employer]. Review of Systems Const Denies chills, Denies fatigue, Denies fever(s), Denies headache(s) and Denies weakness ENT Denies dizziness and Denies headache(s) Card Denies dyspnea Resp Denies cough, Denies dyspnea, Denies wheezing and Denies other (shortness of breath) Musc Denies numbness and Denies tingling Neuro Denies dizziness, Denies headache(s), Denies numbness, Denies tingling and Denies weakness Psych Reports anxiety and Reports depression Endo Denies fatigue Aller/Immun Denies wheezing Physical exam (Primary Care) Vital Signs: Last Vital Signs Pulse 92 04/05/24 12:53 Resp 16 04/05/24 12:53 BP 110/70 04/05/24 12:53 Pulse Ox 94 04/05/24 12:53 Oxygen Delivery Method Room Air 04/05/24 12:53 BMI result Body Mass Index 28.8 Tobacco/Smoking Status: Tobacco use Status Tobacco use date assessed 08/17/23 04/05/24 12:52 Patient Tobacco Use Status Current everyday Tobacco 04/05/24 12:52 Tobacco use type Cigarette 04/05/24 12:52 e-Cigarette/Vaping Use Never Used 04/05/24 12:52 Thrive Assessment: Date of Thrive Assessment Date Thrive assessed 02/02/24 04/05/24 12:52 Currently or been in a relationship where the following occur: No concerns reported Const General: well developed; No acute distress Nutritional Appearance: well nourished Orientation/consciousness: patient oriented x3 HENMT Head: Yes normocephalic and Yes atraumatic Eyes General: appearance normal, both eyes and all related structures Pupils: Equal, round and reactive pupils present EOM: EOMs intact bilaterally Resp Effort & Inspection: normal respiratory effort Neuro General: patient oriented x3 and gait normal Cranial nerves: Yes Equal, round and reactive pupils present Psych Affect: normal affect Coding Level of Care Code Est Pt Level 3 (52883) Diagnoses Anxiety and depression F41.9; F32.A Insomnia due to other mental disorder F51.05; F99 Insomnia type: due to other mental disorder Assessment & Plan Assessment & Plan (1) Anxiety and depression: Code(s): F41.9 - Anxiety disorder, unspecified; F32.A - Depression, unspecified Category: Medical (2) Insomnia: Code(s): G47.00 - Insomnia, unspecified Category: Medical Qualifiers: Insomnia type: due to other mental disorder Qualified Code(s): F51.05 - Insomnia due to other mental disorder; F99 - Mental disorder, not otherwise specified Plan Ongoing?anxiety?and?depression?and?patient?had?drawn?going?back?to?work?but?this ?seems?to?have?exacerbated?his?symptoms?with?worsened?sleep/insomnia?and?also?no lubna?SI?though?he?does?not?have?plan. Patient?contracts?for?safety?and?notes?that?he?is?able?to?speak?use?girlfriend?a bout?these?things?and?also?knows?that?he?can?call?his?therapist?or?here?if he?is?having?suicidal?ideations. He?will?continue?his?medications. He?will?follow-up?with?psychiatrist?regarding?insomnia?and?his?medications I?have?kept?him?out?of?work?with?[employer]. We?discussed?keeping?him?out?th rough?the?end?of?April?or?early?May. Will fill?out?paperwork?through?May?2024 ( or?longest?available?time?left ).??We?did?discuss?that?this?may?exceed?20?week s?provided?for?by?[place]. He?has?an?appointment?with?me?April??in?we?will?discuss?return?to?work?and ?also potential?for?return?to?work?with?limitations?such?as?not?more?than?32?to?40 hrs?per?week.
[2024-04-05 12:53] VITALS: BP 110/70; PULSE 92; RESP 16; O2SAT 94; BMI 28.8
== END 2024-04-05 13:46 | disposition home or self-care (01) ==
PROVIDERS: PCP Family Medicine; Visit Provider Family Medicine
DX: F41.9 Anxiety disorder, unspecified (principal); F32.A Depression, unspecified; F51.05 Insomnia due to other mental disorder; F99 Mental disorder, not otherwise specified

== ENCOUNTER 2024-05-16 13:23 | Outpatient (AMB) | payer BC, SELFPAY ==
--- NOTE | 2024-05-16 13:41 | A.OFFPC_ITS ---
Vital Signs 05/16/24 13:43 Height 5 ft 9 in Weight 197 lb BMI 29.1 BP 110/70 Blood Pressure Location Lt brachial Position Sitting Respiration 14 Pulse 88 Pulse Source Pulse Oximeter Temp 97.8 F Temp Source Oral Pulse Oximetry (%) 97 Oxygen Delivery Method Room Air Intake Visit Reasons: Work Letter Intake Note: fmla paperwork Allergies No Known Allergies [No Known Allergies*] Allergy (Verified 05/16/24 13:42) Tobacco use date assessed: 08/17/23 Dental Screening Dental Screen Date: 09/12/23 HPI Work Letter HPI Details 49 y/o male presents to f/u [facility] paperwo rk. JANUARY-7 8, PHQ-9 8 today. Mood seems to be improving. He is tolerating his meds and is followed by psych/therapist. [facility] Medical History Lower back pain Surgical History History of elbow surgery Family History Father CVD (cardiovascular disease) Myocardial infarction Mental health disorder Mother Mental health disorder Brother No problems noted. Sister Mental health disorder Sister No problems noted. Son No problems noted. Son No problems noted. Social History Housing: House Alcohol intake: never Patient Tobacco Use Status: Current everyday Tobacco user Tobacco use type: Cigarette Cigarette Packs Per Day: 1 Cigarettes Per Day: 15 e-Cigarette/Vaping Use: Never Used Second Hand Smoke Exposure: Yes service: No Current occupational status: employed Cognitive needs: No Hearing needs: No Vision needs: Yes (Glasses) Questionnaire PHQ-9 Over the last 2 weeks, how often have you been bothered by any of the following problems? 1. Little interest or pleasure in doing things: several days 2. Feeling down, depressed, or hopeless: several days 3. Trouble falling or staying asleep, or sleeping too much: nearly every day 4. Feeling tired or having little energy: not at all 5. Poor appetite or overeating: not at all 6. Feeling bad about yourself - or that you are a failure or have let yourself or your family down: nearly every day 7. Trouble concentrating on things, such as reading the newspaper or watching television: not at all 8. Moving or speaking so slowly that other people could have noticed. Or the opposite - being so fidgety or restless that you have been moving around a lot more than usual: not at all 9. Thoughts that you would be better off or of hurting yourself in some way: not at all Total score: 8 Source: Developed by Drs. Gelacio Enriquez, Pretty Ricks, Betito Ramirez and colleagues, with an educational bhumika from [employer]. Thrive Questionnaire Date Thrive assessed: 02/02/24 I am a: Patient What is your living situation today?: I have a steady place to live Within the past 12 months, did the food you bought not last and you didn't have the money to get more?: Never true Within the past 12 months, did you worry whether your food would run out before you got money to buy more?: Never true Do you have trouble paying for medicines?: No Do you have trouble getting transportation to medical appointments?: No Do you have trouble paying your heating and electricity bill?: No Do you have trouble taking care of your child, family member or friend?: No Do you have trouble with day-to-day activities such as bathing, preparing meals, shopping, managing finances, etc.?: No Are you currently unemployed and looking for a job?: No Are you interested in more education?: I choose not to answer this question Please select the resources that you would like help with: None Currently or been in a relationship where the following occur: No concerns reported THRIVE Score: 0 AUDIT C Alcohol Use Questionnaire (AUDIT-C) 1. How often do you have a drink containing alcohol?: Never Total Score: 0 JANUARY-7 AMB Questionnaire JANUARY-7 Date JANUARY - 7 assessed: 02/29/24 Feeling nervous, anxious, or on edge: 1 = Several days Not being able to stop or control worryin = Several days Worrying too much about different things: 1 = Several days Trouble relaxin = Several days Being so restless that it is hard to sit still: 1 = Several days Becoming easily annoyed or irritable: 0 = Not at all Feeling afraid as if something awful might happen: 3 = Nearly every day Total JANUARY-7 score (0-4 normal; 5-9 mild; 10-14 moderate; 15-21 severe): 8 Source: Developed by Drs. Gelacio Enriquez, Pretty Ricks, Betito Ramirez and colleagues, with an educational bhumika from [employer]. Review of Systems Const Denies chills, Denies fatigue, Denies fever(s), Denies headache(s) and Denies weakness ENT Denies dizziness and Denies headache(s) Card Denies dyspnea Resp Denies cough, Denies dyspnea, Denies wheezing and Denies other (shortness of breath) Musc Denies numbness and Denies tingling Neuro Denies dizziness, Denies headache(s), Denies numbness, Denies tingling and Denies weakness Psych Reports anxiety and Reports depression Endo Denies fatigue Aller/Immun Denies wheezing Physical exam (Primary Care) Vital Signs: Last Vital Signs Temp 97.8 F 05/16/24 13:43 Pulse 88 05/16/24 13:43 Resp 14 05/16/24 13:43 BP 110/70 05/16/24 13:43 Pulse Ox 97 05/16/24 13:43 Oxygen Delivery Method Room Air 05/16/24 13:43 BMI result Body Mass Index 29.1 Tobacco/Smoking Status: Tobacco use Status Tobacco use date assessed 08/17/23 05/16/24 13:45 Patient Tobacco Use Status Current everyday Tobacco 05/16/24 13:45 Tobacco use type Cigarette 05/16/24 13:45 e-Cigarette/Vaping Use Never Used 05/16/24 13:45 PHQ-9: PHQ-9 Score PHQ-9: Total score 8 05/16/24 14:17 Thrive Assessment: Date of Thrive Assessment Date Thrive assessed 02/02/24 05/16/24 13:45 Currently or been in a relationship where the following occur: No concerns reported Const General: well developed; No acute distress Nutritional Appearance: well nourished Orientation/consciousness: patient oriented x3 HENMT Head: Yes normocephalic and Yes atraumatic Eyes General: appearance normal, both eyes and all related structures Pupils: Equal, round and reactive pupils present EOM: EOMs intact bilaterally Resp Effort & Inspection: normal respiratory effort Neuro General: patient oriented x3 and gait normal Cranial nerves: Yes Equal, round and reactive pupils present Psych Affect: normal affect Coding Level of Care Code Est Pt Level 3 (18987) Diagnoses Anxiety and depression F41.9; F32.A Assessment & Plan Assessment & Plan (1) Anxiety and depression: Code(s): F41.9 - Anxiety disorder, unspecified; F32.A - Depression, unspecified Category: Medical Plan: Improved?anxiety?with?panic?disorder?and?major?depression Followed?by?psych?and?therapist?and?tolerating?medications Patient?is?ready?to?return?to?work?with?r estriction?that?he?will?not?be?given?overtime?for?the?next?3?months.??We?can?fol low-up?prior?to?this?to?determine?if?he?is?ready?for?over?time. Otherwise,?may?return?to?work?full-time?with?potential?for?intermittent?leave. ?Four?episodes?per?month?and?up?to?1?day?per?episode. Is?psychiatrist?has?started?him?on?medications?including?hydroxyzine.??Patient?w as?concerned?regarding?prior?EKG?which?he? says?was?abnormal.??Reviewed?prior?EKG?which?shows?artifact?but?appears?normal. Repeat?EKG?today?shows?normal?sinus?rhythm,?normal?axis,?no?intervals,?no?ST?T- wave?changes; normal?EKG.
[2024-05-16 13:43] VITALS: BP 110/70; PULSE 88; RESP 14; TEMP 36.6; O2SAT 97; BMI 29.1
--- OUTSIDE RECORDS SUMMARY | 2024-05-16 17:18 | XMS_ITS | Clinical Summary ---
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 Name Role Phone Unavailable Primary Care Provider Unavailabl e Social History Tobacco Use Types Packs/Day Years Used Date Smoking Tobacco: Never Assessed Sex and Gender Information Value Date Recorded Sex Assigned at Not on file Gender Identity Not on file Sexual Orientation Not on file Plan of Treatment Health Maintenance Due Date Last Done Comments Hepatitis C Virus Screening 1975 HIV Screening 02/10/1989 DTaP/Tdap/Td Vaccines (1 - Tdap) 02/10/1995 Hepatitis B Vaccines (1 of 3 - 19+ 3-dose series) 02/10/1995 COVID-19 Vaccine (2023-2 5 season) 2023 Pneumococcal Vaccine: Pediat claudia (0-5 Years) and At-Risk Patients (6 to 49 Years) Aged Out No longer eligible b ased on patient's age to complete this topic
== END 2024-05-16 15:05 | disposition home or self-care (01) ==
PROVIDERS: PCP Family Medicine; Visit Provider Family Medicine
DX: F41.9 Anxiety disorder, unspecified (principal); F32.A Depression, unspecified

== ENCOUNTER → 2024-05-16 13:23 | Outpatient (BNVA) | payer BC, SELFPAY | PROVIDERS: PCP Family Medicine; Visit Provider Family Medicine ==

== ENCOUNTER → 2024-06-10 13:32 | Outpatient (BNVA) | payer BC, SELFPAY | PROVIDERS: PCP Family Medicine; Visit Provider Family Medicine ==

== ENCOUNTER 2024-06-20 16:24 | Outpatient (AMB) | payer BC, SELFPAY ==
--- NOTE | 2024-06-20 15:37 | A.OFFPSYCH_ITS ---
Intake Intake Visit Reasons: f/u consultation Allergies No Known Allergies [No Known Allergies*] Allergy (Verified 06/10/24 13:50) Medication List - Last Reconciled 06/20/24 by Carol Rodriges APRN alprazolam 0.5 mg PO DAILY 30 days lamotrigine (Lamictal) 100 mg PO DAILY HPI- Psychiatric Chief Complaint: f/u consultation HPI Narrative: Pt reports continued anxiety; he reports the lamictal has helped a little; he feels it may have decreased the frequency and intensity of the panic or anxiety attacks; he says the only time he really feels calm is after he takes the xanax. He reports sleeping much better; he is working with his therapist t reduce worried thoughts and anxious patterns. he is doing well with work and feels setting limits with not doing overtime has reduced his stress; we reviewed his recnt EKG which showed normal ekg and normal SR. No SI no HI He denies side effects from lamictal. No rash Past Psychiatric History: 4-5 [facility]. 2-3 [facility] , current therapist is Warren Peraza in [facility] Subjective Subjective Subjective Medication Compliance: Yes Side effects from medications: No Review of Systems Medical Review of Systems: unchanged Mental Status Exam Mental Status Exam Patient Appearance: Well Grooomed and Appropriate Patient Orientation: Person, Place, Time and Situation Level of Consciousness: Awake and Appropriate Patient Behavior: Appropriate Mood Description: Constricted and Anxious Affect Description: Constricted and Anxious Patient Cognition Impaired: No Ability to Follow Directions: Good Speech Pattern: Clear and Appropriate Memory Description: Intact Hallucinations: None Delusions: Not Present Thought Process: Intact and Goal Oriented Thought Content: positive for Intact and positive for Goal Oriented Judgement: Good Results Reviewed Results Reviewed: reviewed EKG Telehealth Telehealth Telehealth Platform: Other (please specify) ([email or web address]) Location of provider rendering services: practice address Location of patient: address on file Patient Identification confirmed using: Name, : Yes Telehealth method: video Patient verbally consented to treatment: Yes Patient verbally consented to billing insurance company: Yes Minutes spent on Phone/Video with Pt.: 30 Assessment and Plan Assessment & Plan (1) Generalized anxiety disorder with panic attacks: Status: Acute Code(s): F41.1 - Generalized anxiety disorder; F41.0 - Panic disorder [episodic paroxysmal anxiety] (2) Insomnia: Status: Acute Qualifiers: Insomnia type: due to other mental disorder Qualified Code(s): F51.05 - Insomnia due to other mental disorder; F99 - Mental disorder, not otherwise specified Code(s): G47.00 - Insomnia, unspecified Plan Increase lamictal to 150mg daily for anxiety/panic continue xanax 0.5mg qd prn panic or severe anxiety monitor for new rash and contact office right away of develop new rash; advised not to change any personal products at time of increase such as no new lotions, soap laundry detergent labs every 6-12 month to monitor liver enzymes while on lamictal - if elevated can reduce dose discussed referringnickm zackery to PCP for contiued med management if needs to return for any reason can be re-referred to this marketing writer Medications: New lamotrigine (Lamictal) 150 mg PO DAILY 60 tabs 1RF Refilled alprazolam 0.5 mg PO DAILY 30 days 30 tabs 3RF M54.9 - Dorsalgia, unspecified Counseling and coordination of Care Pt. Self Management counseling: Maintenance-social rhythm, Mod caffeine/ETOH intake, Nutrition education and improvement, Sleep hygiene and General coping skills Medication management counseling: Effectiveness, Side effects, Dosing range, Duration and Drug interaction Diagnosis and Prognosis Counseling: Accuracy of diagnosis, Prognosis over time, Impact of diagnosis on life functions, Impact of family relationship, Problematic behaviors secondary to diagnosis and Adequacy of current interventions Details: I spent 40 minutes reviewing the record, seeing the patient and documenting in the medical record. Counseling provided to the patient/caregiver as outlined below. Addressed patient/caregiver concerns regarding current medication regime including effective adherence. Addressed patient/caregiver concerns regarding diagnosis and prognosis including accuracy of diagnosis, prognosis over time, impact of diagnosis. Addressed patient/caregiver concerns regarding impact of recent stressors. [facility] Medical History Lower back pain Surgical History History of elbow surgery Family History Father CVD (cardiovascular disease) Myocardial infarction Mental health disorder Mother Mental health disorder Brother No problems noted. Sister Mental health disorder Sister No problems noted. Son No problems noted. Son No problems noted. Social History (Reviewed 09/12/23 @ 14:50 by Karyn Preston [facility]) Housing: House Alcohol intake: never Patient Tobacco Use Status: Current everyday Tobacco user Tobacco use type: Cigarette Cigarette Packs Per Day: 1 Cigarettes Per Day: 15 e-Cigarette/Vaping Use: Never Used Second Hand Smoke Exposure: Yes service: No Current occupational status: employed Cognitive needs: No Hearing needs: No Vision needs: Yes (Glasses) Social History: grew up in [place] with M& [employer] and 2 sisters and 1 brother- pt is youngest; pt had trouble learning in school he was disengaged. Substance History: THC stopped 8 yrs ago, ETOH - none Trauma History: yes Coding Level of Care Code Est Pt Level 4 (07590) Diagnoses Generalized anxiety disorder with panic attacks F41.1; F41.0 Insomnia due to other mental disorder F51.05; F99 Insomnia type: due to other mental disorder
--- OUTSIDE RECORDS SUMMARY | 2024-06-20 19:27 | XMS_ITS | Clinical Summary ---
Author Organization [facility] Address [address] [place] [address] Care Team Providers Care Supervisor Soldering Name Role Phone Unavailable Primary Care Provider [...]
== END 2024-06-20 16:24 | disposition home or self-care (01) ==
LOC: HO.HOP 16:24
PROVIDERS: PCP Family Medicine; Visit Provider Clinical Nurse Specialist Psychiatric/Mental Health
DX: F41.1 Generalized anxiety disorder (principal); F41.0 Panic disorder [episodic paroxysmal anxiety]; F51.05 Insomnia due to other mental disorder; F99 Mental disorder, not otherwise specified
CPT/HCPCS: 99214

== ENCOUNTER 2024-07-01 15:34 | Outpatient (AMB) | payer BC, SELFPAY ==
--- NOTE | 2024-07-01 15:52 | MHC.PC.OV ---
Vital Signs 07/01/24 15:59 Height 5 ft 9 in Weight 195 lb 4 oz BMI 28.8 BP 100/70 Blood Pressure Location Lt brachial Position Sitting Respiration 12 Pulse 85 Pulse Source Pulse Oximeter Temp 97.9 F Temp Source Oral Pulse Oximetry (%) 97 Oxygen Delivery Method Room Air Intake Visit Reasons: f/u anxiety/depression Intake Note: patient is schedule for anxiety and depression Quarter Supervisor Required: No Allergies No Known Allergies [No Known Allergies*] Allergy (Verified 07/01/24 15:55) Tobacco use date assessed: 08/17/23 Dental Screening Dental Screen Date: 09/12/23 HPI f/u anxiety/depression HPI Details 49 y/o male presents to f/u anxiety/depression. PHQ-9 8, JANUARY-7 15 today. He is on alprazolam, lamotrigine 150mg daily. Had been following up with psychiatry. He notes he does not seem to tolerate Lamictal at 150mg. They had increased it from 100mg and he feels anxiety has worsened since. HPI Comments History of Present Illness Details Documentation assistance for Tra Blackburn MD, was provided by Jose Moran,? Inventory Auditor on 07/01/2024 at 4:35 PM EST. I, Dr. Blackburn, have read, observed, and verified documentation. ?? [facility] Medical History Lower back pain Surgical History History of elbow surgery Family History Father CVD (cardiovascular disease) Myocardial infarction Mental health disorder Mother Mental health disorder Brother No problems noted. Sister Mental health disorder Sister No problems noted. Son No problems noted. Son No problems noted. Social History Housing: House Alcohol intake: never Patient Tobacco Use Status: Current everyday Tobacco user Tobacco use type: Cigarette Cigarette Packs Per Day: 1 Cigarettes Per Day: 15 e-Cigarette/Vaping Use: Never Used Second Hand Smoke Exposure: Yes service: No Current occupational status: employed Cognitive needs: No Hearing needs: No Vision needs: Yes (Glasses) Questionnaire PHQ-9 Over the last 2 weeks, how often have you been bothered by any of the following problems? 1. Little interest or pleasure in doing things: several days 2. Feeling down, depressed, or hopeless: several days 3. Trouble falling or staying asleep, or sleeping too much: not at all 4. Feeling tired or having little energy: nearly every day 5. Poor appetite or overeating: not at all 6. Feeling bad about yourself - or that you are a failure or have let yourself or your family down: nearly every day 7. Trouble concentrating on things, such as reading the newspaper or watching television: not at all 8. Moving or speaking so slowly that other people could have noticed. Or the opposite - being so fidgety or restless that you have been moving around a lot more than usual: not at all 9. Thoughts that you would be better off or of hurting yourself in some way: not at all Total score: 8 Depression Screening Interpretation: Positive Depression Screening Follow-up: In treatment Depression Screening Done: Yes 43630 - PHQ-9 Billing: Yes Source: Developed by Drs. Gelacio Enriquez, Pretty Ricks, Betito Ramirez and colleagues, with an educational bhumika from [employer]. Thrive Questionnaire Date Thrive assessed: 02/02/24 I am a: Patient What is your living situation today?: I have a steady place to live Within the past 12 months, did the food you bought not last and you didn't have the money to get more?: Never true Within the past 12 months, did you worry whether your food would run out before you got money to buy more?: Never true Do you have trouble paying for medicines?: No Do you have trouble getting transportation to medical appointments?: No Do you have trouble paying your heating and electricity bill?: No Do you have trouble taking care of your child, family member or friend?: No Do you have trouble with day-to-day activities such as bathing, preparing meals, shopping, managing finances, etc.?: No Are you currently unemployed and looking for a job?: No Are you interested in more education?: I choose not to answer this question Please select the resources that you would like help with: None Currently or been in a relationship where the following occur: No concerns reported THRIVE Score: 0 JANUARY-7 AMB Questionnaire JANUARY-7 Date JANUARY - 7 assessed: 07/01/24 Feeling nervous, anxious, or on edge: 3 = Nearly every day Not being able to stop or control worryin = Nearly every day Worrying too much about different things: 3 = Nearly every day Trouble relaxin = Nearly every day Being so restless that it is hard to sit still: 0 = Not at all Becoming easily annoyed or irritable: 0 = Not at all Feeling afraid as if something awful might happen: 3 = Nearly every day Total JANUARY-7 score (0-4 normal; 5-9 mild; 10-14 moderate; 15-21 severe): 15 Source: Developed by Drs. Gelacio Enriquez, Pretty Ricks, Betito Ramirez and colleagues, with an educational bhumika from [employer]. JANUARY-7 Assessment Billing JANUARY-7 Assessment Tool: JANUARY-7 Assessment 66826 Review of Systems Const Denies chills, Denies fatigue, Denies fever(s), Denies headache(s) and Denies weakness ENT Denies dizziness and Denies headache(s) Card Denies dyspnea Resp Denies cough, Denies dyspnea, Denies wheezing and Denies other (shortness of breath) Musc Denies numbness and Denies tingling Neuro Denies dizziness, Denies headache(s), Denies numbness, Denies tingling and Denies weakness Psych Denies anxiety and Denies depression Endo Denies fatigue Aller/Immun Denies wheezing Physical exam (Primary Care) Vital Signs: Last Vital Signs Temp 97.9 F 07/01/24 15:59 Pulse 85 07/01/24 15:59 Resp 12 07/01/24 15:59 BP 100/70 07/01/24 15:59 Pulse Ox 97 07/01/24 15:59 Oxygen Delivery Method Room Air 07/01/24 15:59 BMI result Body Mass Index 28.8 Tobacco/Smoking Status: Tobacco use Status Tobacco use date assessed 08/17/23 07/01/24 15:54 Patient Tobacco Use Status Current everyday Tobacco 07/01/24 15:54 Tobacco use type Cigarette 07/01/24 15:54 e-Cigarette/Vaping Use Never Used 07/01/24 15:54 PHQ-9: PHQ-9 Score PHQ-9: Total score 8 07/01/24 16:17 Depression Screening Interpretation: Positive Depression Screening Follow-up: In treatment Thrive Assessment: Date of Thrive Assessment Date Thrive assessed 02/02/24 07/01/24 15:54 Currently or been in a relationship where the following occur: No concerns reported Const General: well developed; No acute distress Nutritional Appearance: well nourished Orientation/consciousness: patient oriented x3 HENMT Head: Yes normocephalic and Yes atraumatic Eyes General: appearance normal, both eyes and all related structures Pupils: Equal, round and reactive pupils present EOM: EOMs intact bilaterally Resp Effort & Inspection: normal respiratory effort Neuro General: patient oriented x3 and gait normal Cranial nerves: Yes Equal, round and reactive pupils present Psych Affect: normal affect Coding Level of Care Code Est Pt Level 3 (77201) Diagnoses Anxiety and depression F41.9; F32.A Additional Codes JANUARY-7 Assessment Billing - JANUARY-7 Assessment Tool: JANUARY-7 Assessment 48031 ([id number]) PHQ-9 - 40213 - PHQ-9 Billing: Yes ([id number]) Assessment & Plan Assessment & Plan (1) Anxiety and depression: Code(s): F41.9 - Anxiety disorder, unspecified; F32.A - Depression, unspecified Category: Medical Plan: Ongoing and worsened Anxiety and depression Worsened since increasing lamictal will decrease again to 100mg daily cont Alprazolam as?prescribed. Will?see?him?back?in?1?month. Patient?has?had?longstanding?anxiety?and?depression?despite?using?multiple?medications. We?discussed?today?transcranial?magnetic?stimulation If?not?improved?at?next?visit,?could?consider?referral?for?this. Medications: Changed From lamotrigine (Lamictal) 150 mg PO DAILY 60 tabs 1RF To lamotrigine 100 mg PO DAILY 90 days 90 tabs 2RF
[2024-07-01 15:59] VITALS: BP 100/70; PULSE 85; RESP 12; TEMP 36.6; O2SAT 97; BMI 28.8
--- OUTSIDE RECORDS SUMMARY | 2024-07-01 18:02 | XMS_ITS | Clinical Summary ---
Author Organization [facility] Address [address] [place] [address] Care Team Providers Care Continuous Miner Operator Helper Name Role Phone Unavailable Primary Care Provider [...]
== END 2024-07-01 16:35 | disposition home or self-care (01) ==
LOC: HO.HMCFM 15:35
PROVIDERS: PCP Family Medicine; Visit Provider Family Medicine
DX: F41.9 Anxiety disorder, unspecified (principal); F32.A Depression, unspecified

== ENCOUNTER → 2024-07-01 15:34 | Outpatient (BNVA) | payer BC, SELFPAY | PROVIDERS: PCP Family Medicine; Visit Provider Family Medicine | DX: F41.9 Anxiety disorder, unspecified (principal); F32.A Depression, unspecified; Z79.899 Other long term (current) drug therapy | CPT/HCPCS: 96127 ==

== ENCOUNTER 2024-08-05 15:21 | Outpatient (AMB) | payer BC, SELFPAY ==
--- OUTSIDE RECORDS SUMMARY | 2024-08-05 15:24 | XMS_ITS | Clinical Summary ---
Author Organization [facility] Address [address] [place] [address] Care Team Providers Care Linux Admin Name Role Phone Unavailable Primary Care Provider Unavailabl e Social History Tobacco Use Types Packs/Day Years Used Date Smoking Tobacco: Never Assessed Sex and Gender Information Value Date Recorded Sex Assigned at Not on file Legal Sex Male 2:37 PM EDT Gender Identity Not on file Sexual Orientation [...]
--- NOTE | 2024-08-05 15:34 | MHC.PC.OV ---
Vital Signs 08/05/24 15:37 Height 5 ft 9 in Weight 197 lb 4 oz BMI 29.1 BP 120/78 Blood Pressure Location Lt brachial Position Sitting Respiration 14 Pulse 83 Pulse Source Pulse Oximeter Temp 97.5 F Temp Source Oral Pulse Oximetry (%) 95 Oxygen Delivery Method Room Air Intake Visit Reasons: f/u anxiety/depression Allergies No Known Allergies [No Known Allergies*] Allergy (Verified 07/01/24 15:55) Medication List - Last Reconciled 08/05/24 by Tra Blackburn MD alprazolam 0.5 mg PO DAILY 30 days lamotrigine 100 mg PO DAILY 90 days nicotine 1 patch transdermal Q24H 28 days Tobacco use date assessed: 08/17/23 Dental Screening Dental Screen Date: 09/12/23 HPI f/u anxiety/depression HPI Details 49 y/o male presents to f/u anxiety/depression, FMLA paperwork. PHQ-9 3, JANUARY-7 8 today. He is on alprazolam 0.5mg, lamotrigine 100mg daily. He is requesting a prescription for nicotine patches. He notes he vapes. HPI Comments History of Present Illness Details Documentation assistance for Tra Blackburn MD, was provided by Jose Moran, Automobile Leasing Supervisor on 08/05/2024 at 3:44 PM EST. I, Dr. Blackburn, have read, observed, and verified documentation. [facility] Medical History Lower back pain Surgical History History of elbow surgery Family History Father CVD (cardiovascular disease) Myocardial infarction Mental health disorder Mother Mental health disorder Brother No problems noted. Sister Mental health disorder Sister No problems noted. Son No problems noted. Son No problems noted. Social History Housing: House Alcohol intake: never Patient Tobacco Use Status: Current everyday Tobacco user Tobacco use type: Cigarette Cigarette Packs Per Day: 1 Cigarettes Per Day: 15 e-Cigarette/Vaping Use: Never Used Second Hand Smoke Exposure: Yes service: No Current occupational status: employed Cognitive needs: No Hearing needs: No Vision needs: Yes (Glasses) Questionnaire PHQ-9 Over the last 2 weeks, how often have you been bothered by any of the following problems? 1. Little interest or pleasure in doing things: several days 2. Feeling down, depressed, or hopeless: several days 3. Trouble falling or staying asleep, or sleeping too much: not at all 4. Feeling tired or having little energy: not at all 5. Poor appetite or overeating: not at all 6. Feeling bad about yourself - or that you are a failure or have let yourself or your family down: several days 7. Trouble concentrating on things, such as reading the newspaper or watching television: not at all 8. Moving or speaking so slowly that other people could have noticed. Or the opposite - being so fidgety or restless that you have been moving around a lot more than usual: not at all 9. Thoughts that you would be better off or of hurting yourself in some way: not at all Total score: 3 Depression Screening Interpretation: Negative Depression Screening Done: Yes 30248 - PHQ-9 Billing: Yes Source: Developed by Drs. Gelacio Enriquez, Pretty Ricks, Betito Ramirez and colleagues, with an educational bhumika from [employer]. Thrive Questionnaire Date Thrive assessed: 05/16/24 I am a: Patient What is your living situation today?: I have a steady place to live Within the past 12 months, did the food you bought not last and you didn't have the money to get more?: Never true Within the past 12 months, did you worry whether your food would run out before you got money to buy more?: Never true Do you have trouble paying for medicines?: No Do you have trouble getting transportation to medical appointments?: No Do you have trouble paying your heating and electricity bill?: No Do you have trouble taking care of your child, family member or friend?: No Do you have trouble with day-to-day activities such as bathing, preparing meals, shopping, managing finances, etc.?: No Are you currently unemployed and looking for a job?: No Are you interested in more education?: I choose not to answer this question Please select the resources that you would like help with: None Currently or been in a relationship where the following occur: No concerns reported THRIVE Score: 0 JANUARY-7 AMB Questionnaire JANUARY-7 Date JANUARY - 7 assessed: 08/05/24 Feeling nervous, anxious, or on edge: 1 = Several days Not being able to stop or control worryin = Several days Worrying too much about different things: 1 = Several days Trouble relaxin = Several days Being so restless that it is hard to sit still: 1 = Several days Becoming easily annoyed or irritable: 0 = Not at all Feeling afraid as if something awful might happen: 3 = Nearly every day Total JANUARY-7 score (0-4 normal; 5-9 mild; 10-14 moderate; 15-21 severe): 8 Source: Developed by Drs. Gelacio Enriquez, Pretty Ricks, Betito Ramirez and colleagues, with an educational bhumika from [employer]. JANUARY-7 Assessment Billing JANUARY-7 Assessment Tool: JANUARY-7 Assessment 53887 Review of Systems Const Denies chills, Denies fatigue, Denies fever(s), Denies headache(s) and Denies weakness ENT Denies dizziness and Denies headache(s) Card Denies dyspnea Resp Denies cough, Denies dyspnea, Denies wheezing and Denies other (shortness of breath) Musc Denies numbness and Denies tingling Neuro Denies dizziness, Denies headache(s), Denies numbness, Denies tingling and Denies weakness Psych Reports anxiety and Denies depression Endo Denies fatigue Aller/Immun Denies wheezing Physical exam (Primary Care) Vital Signs: Last Vital Signs Temp 97.5 F 08/05/24 15:37 Pulse 83 08/05/24 15:37 Resp 14 08/05/24 15:37 BP 120/78 08/05/24 15:37 Pulse Ox 95 08/05/24 15:37 Oxygen Delivery Method Room Air 08/05/24 15:37 BMI result Body Mass Index 29.1 Tobacco/Smoking Status: Tobacco use Status Tobacco use date assessed 08/17/23 08/05/24 15:38 Patient Tobacco Use Status Current everyday Tobacco 08/05/24 15:38 Tobacco use type Cigarette 08/05/24 15:38 e-Cigarette/Vaping Use Never Used 08/05/24 15:38 PHQ-9: PHQ-9 Score PHQ-9: Total score 3 08/05/24 15:43 Depression Screening Interpretation: Negative Thrive Assessment: Date of Thrive Assessment Date Thrive assessed 05/16/24 08/05/24 15:38 Currently or been in a relationship where the following occur: No concerns reported Const General: well developed; No acute distress Nutritional Appearance: well nourished Orientation/consciousness: patient oriented x3 HENMT Head: Yes normocephalic and Yes atraumatic Eyes General: appearance normal, both eyes and all related structures Pupils: Equal, round and reactive pupils present EOM: EOMs intact bilaterally Resp Effort & Inspection: normal respiratory effort Neuro General: patient oriented x3 and gait normal Cranial nerves: Yes Equal, round and reactive pupils present Psych Affect: normal affect Coding Level of Care Code Est Pt Level 3 (95309) Diagnoses Anxiety and depression F41.9; F32.A Vapes nicotine containing substance Z72.0 Additional Codes JANUARY-7 Assessment Billing - JANUARY-7 Assessment Tool: JANUARY-7 Assessment 24475 ([id number]) PHQ-9 - 65494 - PHQ-9 Billing: Yes ([id number]) Assessment & Plan Assessment & Plan (1) Anxiety and depression: Code(s): F41.9 - Anxiety disorder, unspecified; F32.A - Depression, unspecified Category: Medical Plan: Ongoing?anxiety?and?depression?PTSD?and?major?depression. Now?has?a?therapist?and?psychiatrist.??He?is?taking?medication?and?undergoing?psychotherapy. Patient?says?his?therapist?feels?that?he?is?improving?but?advises?he?should?not?work?excessive?hours>?about?8?hours?per?day?or?40?hours?per?week. We?have?discussed?this?and?I?agree. Will?fill?out?FMLA?paperwork?limiting?his?work?hours?to?exclude?overtime. Will?also?give?him?opportunity?for?intermittent?leave?during?flare-ups. Will?continue?this?from?08/12/2024?through?12/01/2024. I?will?see?him?back?in?the?1st?week?of?November?to?re-evaluate (2) Vapes nicotine containing substance: Code(s): Z72.0 - Tobacco use Category: Social Hx Plan: Patient?would?like?to?try?nicotine?patches?for vaping?cessation. Send?script Medications: New nicotine 1 patch transdermal Q24H 28 days 28 ea 3RF
[2024-08-05 15:37] VITALS: BP 120/78; PULSE 83; RESP 14; TEMP 36.4; O2SAT 95; BMI 29.1
== END 2024-08-05 16:10 | disposition home or self-care (01) ==
LOC: HO.HMCFM 15:22
PROVIDERS: PCP Family Medicine; Visit Provider Family Medicine
DX: F41.9 Anxiety disorder, unspecified (principal); F32.A Depression, unspecified; Z72.0 Tobacco use

== ENCOUNTER → 2024-08-05 15:21 | Outpatient (BNVA) | payer BC, SELFPAY | PROVIDERS: PCP Family Medicine; Visit Provider Family Medicine | DX: F41.9 Anxiety disorder, unspecified (principal); F32.A Depression, unspecified; Z72.0 Tobacco use; Z79.899 Other long term (current) drug therapy | CPT/HCPCS: 96127 ==

== ENCOUNTER 2024-09-03 15:49 | Outpatient (AMB) | payer BC, SELFPAY ==
--- NOTE | 2024-09-03 16:18 | MHC.PC.OV ---
Vital Signs 09/03/24 16:22 Height 5 ft 9 in Weight 193 lb 6 oz BMI 28.6 BP 110/68 Blood Pressure Location Rt brachial Position Sitting Respiration 14 Pulse 84 Pulse Source Pulse Oximeter Temp 97.7 F Temp Source Oral Pulse Oximetry (%) 97 Oxygen Delivery Method Room Air Intake Visit Reasons: annual Intake Note: patient is scheduled for cpe Adult Services Librarian Required: No Allergies No Known Allergies [No Known Allergies*] Allergy (Verified 09/03/24 16:21) Medication List - Last Reconciled 09/03/24 by Tra Blackburn MD alprazolam 0.5 mg PO DAILY 30 days lamotrigine 100 mg PO DAILY 90 days nicotine 1 patch transdermal Q24H 28 days Tobacco use date assessed: 08/17/23 Dental Screening Dental Screen Date: 09/12/23 HPI annual HPI Details 49 y/o male presents for a CPE with f/u labs and health maintenance. No recent labs to review. Pt notes he continues to try to quit nicotine containing substances. He feels nicotine patch at its current dose is not enough. He continues to work on a healthy diet. HPI Comments History of Present Illness Details Documentation assistance for Tra Blackburn MD, was provided by Jose Moran,? Senior Director Creative Services on 09/03/2024 at 4:38 PM EST. I, Dr. Blackburn, have read, observed, and verified documentation. [facility] Medical History Lower back pain Surgical History History of elbow surgery Family History Father CVD (cardiovascular disease) Myocardial infarction Mental health disorder Mother Mental health disorder Brother No problems noted. Sister Mental health disorder Sister No problems noted. Son No problems noted. Son No problems noted. Social History Housing: House Alcohol intake: never Patient Tobacco Use Status: Current everyday Tobacco user Tobacco use type: Cigarette Cigarette Packs Per Day: 1 Cigarettes Per Day: 15 e-Cigarette/Vaping Use: Never Used Second Hand Smoke Exposure: Yes service: No Current occupational status: employed Cognitive needs: No Hearing needs: No Vision needs: Yes (Glasses) Questionnaire PHQ-9 Over the last 2 weeks, how often have you been bothered by any of the following problems? 1. Little interest or pleasure in doing things: several days 2. Feeling down, depressed, or hopeless: several days 3. Trouble falling or staying asleep, or sleeping too much: several days 4. Feeling tired or having little energy: several days 5. Poor appetite or overeating: several days 6. Feeling bad about yourself - or that you are a failure or have let yourself or your family down: more than half the days 7. Trouble concentrating on things, such as reading the newspaper or watching television: not at all 8. Moving or speaking so slowly that other people could have noticed. Or the opposite - being so fidgety or restless that you have been moving around a lot more than usual: nearly every day 9. Thoughts that you would be better off or of hurting yourself in some way: not at all Total score: 10 Depression Screening Interpretation: Positive Depression Screening Done: Yes 40897 - PHQ-9 Billing: Yes Source: Developed by Drs. Gelacio Enriquez, Pretty Ricks, Betito Ramirez and colleagues, with an educational bhumika from [employer]. Thrive Questionnaire Date Thrive assessed: 05/16/24 I am a: Patient What is your living situation today?: I have a steady place to live Within the past 12 months, did the food you bought not last and you didn't have the money to get more?: Never true Within the past 12 months, did you worry whether your food would run out before you got money to buy more?: Never true Do you have trouble paying for medicines?: No Do you have trouble getting transportation to medical appointments?: No Do you have trouble paying your heating and electricity bill?: No Do you have trouble taking care of your child, family member or friend?: No Do you have trouble with day-to-day activities such as bathing, preparing meals, shopping, managing finances, etc.?: No Are you currently unemployed and looking for a job?: No Are you interested in more education?: I choose not to answer this question Please select the resources that you would like help with: None Currently or been in a relationship where the following occur: No concerns reported THRIVE Score: 0 JANUARY-7 AMB Questionnaire JANUARY-7 Date JANUARY - 7 assessed: 09/03/24 Feeling nervous, anxious, or on edge: 3 = Nearly every day Not being able to stop or control worryin = Nearly every day Worrying too much about different things: 3 = Nearly every day Trouble relaxin = Several days Being so restless that it is hard to sit still: 3 = Nearly every day Becoming easily annoyed or irritable: 0 = Not at all Feeling afraid as if something awful might happen: 3 = Nearly every day Total JANUARY-7 score (0-4 normal; 5-9 mild; 10-14 moderate; 15-21 severe): 16 Source: Developed by Drs. Gelacio Enriquez, Pretty Ricks, Betito Ramirez and colleagues, with an educational bhumika from [employer]. JANUARY-7 Assessment Billing JANUARY-7 Assessment Tool: JANUARY-7 Assessment 15786 Review of Systems Const Denies chills, Denies fatigue, Denies fever(s), Denies headache(s) and Denies weakness Eyes Denies change in vision ENT Denies dizziness, Denies headache(s), Denies hearing loss, Denies nasal congestion, Denies sinus pain, Denies sinus pressure and Denies sore throat Card Denies chest pain, Denies lightheadedness, Denies dyspnea and Denies other (palpitations) Resp Denies cough, Denies dyspnea and Denies wheezing GI Denies abdominal pain, Denies melena, Denies hematochezia, Denies change in bowel habits, Denies dyspepsia and Denies nausea Denies hematuria and Denies dysuria Musc Denies abnormal gait, Denies myalgias, Denies arthralgias, Denies numbness and Denies tingling Skin/Breast Denies rash, Denies unusual bruising and Denies wounds Neuro Denies abnormal gait, Denies dizziness, Denies headache(s), Denies memory loss, Denies numbness, Denies Sensory deficit (Neuro), Denies tingling and Denies weakness Psych Reports anxiety, Reports depression and Denies memory loss Endo Denies cold intolerance, Denies fatigue, Denies heat intolerance, Denies polydipsia and Denies polyuria Elvis/Lymph Denies easy bleeding and Denies easy bruising Aller/Immun Denies wheezing Physical exam (Primary Care) Vital Signs: Last Vital Signs Temp 97.7 F 09/03/24 16:22 Pulse 84 09/03/24 16:22 Resp 14 09/03/24 16:22 BP 110/68 09/03/24 16:22 Pulse Ox 97 09/03/24 16:22 Oxygen Delivery Method Room Air 09/03/24 16:22 BMI result Body Mass Index 28.6 Tobacco/Smoking Status: Tobacco use Status Tobacco use date assessed 08/17/23 09/03/24 16:20 Patient Tobacco Use Status Current everyday Tobacco 09/03/24 16:20 Tobacco use type Cigarette 09/03/24 16:20 e-Cigarette/Vaping Use Never Used 09/03/24 16:20 PHQ-9: PHQ-9 Score PHQ-9: Total score 10 09/03/24 16:26 Depression Screening Interpretation: Positive Thrive Assessment: Date of Thrive Assessment Date Thrive assessed 05/16/24 09/03/24 16:20 Currently or been in a relationship where the following occur: No concerns reported Const General: no acute distress, well developed, alert and awake Nutritional Appearance: well nourished Orientation/consciousness: patient oriented x3 HENMT Head: Yes normocephalic and Yes atraumatic Ears: hearing grossly normal bilaterally and TM's normal bilaterally General nose exam: Normal external nose present and Normal nares present Mouth: Normal oral and palatal mucosa present and moist mucous membranes Teeth and gingiva: dentition normal Throat: Yes posterior oropharynx normal Eyes General: appearance normal, both eyes and all related structures Pupils: Equal, round and reactive pupils present and Pupil accommodation reflex normal EOM: EOMs intact bilaterally Neck Neck: Yes normal visual inspection, Yes no lymphadenopathy and Yes trachea midline Thyroid: Thyroid normal Carotids: no bruits Lymphatic: no lymphadenopathy noted Chest Chest palpation & inspection: normal inspection of the chest Resp Effort & Inspection: normal respiratory effort Auscultation: clear to auscultation bilaterally Cardio Rate: regular rate Rhythm: regular rhythm Heart sounds: S1 normal heart sound present, S2 normal heart sound present, no gallops, no murmurs and no rubs Bruits: no abdominal aortic bruits and no carotid bruits GI Palpation (GI): No Abdominal aortic bruit present, Soft to palpation, nontender, No hepatosplenomegaly present and No Rebound tenderness present Auscultation: normal bowel sounds General: Yes no CVA tenderness Back/Spine/Pelvis Back: no CVA tenderness Cervical Spine: cervical ROM normal and No Cervical spine tenderness Thoracic/Lumbar Spine: thoraco-lumbar ROM normal, No pain with thoraco-lumbar ROM, No thoracic spinal tenderness and No lumbar spinal tenderness Skin Lesions: no lesions Rashes: no rashes Trauma: no lacerations or abrasions Wounds: no wounds Nails: normal Neuro General: patient oriented x3 Cranial nerves: Yes Equal, round and reactive pupils present Cognition (Neuro): normal cognition Gait exam (Neuro): Normal gait present Motor exam (neuro): 5/5 motor strength present throughout Sensory Exam: No Sensory deficit (Neuro) Deep tendon reflexes (DTR's): Right patellar reflex intensity grade: 2+ and Left patellar reflex intensity grade: 2+ Extrem General: Yes normal to inspection and No edema Psych Appearance: grossly normal Affect: normal affect Attitude: cooperative Thought process: Normal thought process present Coding Level of Care Code Est Pt Level 3 (46019) Est Pt Prev Care 40-64y(92720) Diagnoses Adult general medical exam Z00.00 Anxiety and depression F41.9; F32.A Vapes nicotine containing substance Z72.0 Inguinal pain R10.30 Screening for colon cancer Z12.11 Screening for prostate cancer Z12.5 Additional Codes JANUARY-7 Assessment Billing - JANUARY-7 Assessment Tool: JANUARY-7 Assessment 49806 ([id number]) PHQ-9 - 57774 - PHQ-9 Billing: Yes ([id number]) Assessment & Plan Assessment & Plan (1) Adult general medical exam: Code(s): Z00.00 - Encounter for general adult medical examination without abnormal findings Category: Medical Plan: 49-year-old?male?presents?for?complete?physical?exam Encouraged?healthy?diet?with?active?lifestyle?and?plenty?of?exercise (2) Anxiety and depression: Code(s): F41.9 - Anxiety disorder, unspecified; F32.A - Depression, unspecified Category: Medical Plan: Ongoing?anxiety?and?depression. Currently?on?work?restrictions?to?prevent excessive/over?work?which?would?exacerbate?his?condition. Continue?current?medication?regimen Follow-up?with?therapist?as?recommended (3) Vapes nicotine containing substance: Code(s): Z72.0 - Tobacco use Category: Social Hx Plan: Patient?tried?quitting?on?nicotine?patches?14mcg daily Was?not?able?to?quit?this?dose Will?increase?this?to?21?mcg Encouraged?cessation (4) Inguinal pain: Code(s): R10.30 - Lower abdominal pain, unspecified Category: Medical Plan: Patient?has?inguinal?discomfort?which?he?describes?as?a?vibratory?sensation No?evidence?of?hernia Likely?due?to high adrenal?tone?anxiety He?will?let?me?know?if?it?changes?or?worsens (5) Screening for colon cancer: Code(s): Z12.11 - Encounter for screening for malignant neoplasm of colon Category: Medical Plan: Has?upcoming?screening?for?colonoscopy?in?November (6) Screening for prostate cancer: Code(s): Z12.5 - Encounter for screening for malignant neoplasm of prostate Category: Medical Plan: Due?for?PSA - ordered Orders: Orders Comprehensive [place]. Panel Fast 09/02/24 Z00.00 - Encounter for general adult medical examination without abnormal findings Complete Blood Count Auto Diff 09/02/24 Z00.00 - Encounter for general adult medical examination without abnormal findings Lipid Panel 09/02/24 Z00.00 - Encounter for general adult medical examination without abnormal findings LDL Cholesterol Direct 09/02/24 E78.5 - Hyperlipidemia, unspecified UA CC w/rflx Micro + Cult 09/02/24 Z00.00 - Encounter for general adult medical examination without abnormal findings TSH reflex Free T4 09/02/24 Z00.00 - Encounter for general adult medical examination without abnormal findings Microalbumin, Random (w Creat) 09/02/24 I10 - Essential (primary) hypertension Prostate Specific Antigen Scr 09/02/24 Z12.5 - Encounter for screening for malignant neoplasm of prostate Medications: Changed From nicotine 1 patch transdermal Q24H 28 days 28 ea 3RF To nicotine 1 patch transdermal Q24H 28 days 28 ea 3RF
[2024-09-03 16:22] VITALS: BP 110/68; PULSE 84; RESP 14; TEMP 36.5; O2SAT 97; BMI 28.6
--- OUTSIDE RECORDS SUMMARY | 2024-09-03 16:41 | XMS_ITS | Clinical Summary ---
Author Organization [facility] Address [address] [place] [address] Care Team Providers Care Entry Level Java Developer Name Role Phone Unavailable Primary Care Provider [...]
== END 2024-09-03 16:51 | disposition home or self-care (01) ==
LOC: HO.HMCFM 15:50
PROVIDERS: PCP Family Medicine; Visit Provider Family Medicine
DX: Z00.00 Encounter for general adult medical examination without abnormal findings (principal); R10.30 Lower abdominal pain, unspecified; F41.9 Anxiety disorder, unspecified; F32.A Depression, unspecified; Z72.0 Tobacco use; Z12.11 Encounter for screening for malignant neoplasm of colon; Z12.5 Encounter for screening for malignant neoplasm of prostate

== ENCOUNTER → 2024-09-03 15:49 | Outpatient (BNVA) | payer BC, SELFPAY | PROVIDERS: PCP Family Medicine; Visit Provider Family Medicine | DX: Z00.00 Encounter for general adult medical examination without abnormal findings (principal); F41.9 Anxiety disorder, unspecified; E78.5 Hyperlipidemia, unspecified; I10 Essential (primary) hypertension; F32.A Depression, unspecified; R10.30 Lower abdominal pain, unspecified; Z72.0 Tobacco use | CPT/HCPCS: 96127 ==

== ENCOUNTER 2024-09-16 08:12 | Outpatient (REF) | payer BC, SELFPAY ==
--- OUTSIDE RECORDS SUMMARY | 2024-09-16 08:18 | XMS_ITS | Clinical Summary ---
Author Organization [facility] Address [address] [place] [address] Care Team Providers Care Neurology Professor Name Role Phone Unavailable Primary Care Provider [...]
[2024-09-16 11:23] LABS: MANUAL DIFF FLAG NO
[2024-09-16 11:34] LABS: Appearance Urine Clear; Color Urine Dark Yellow; Glucose Urine UA Negative (Negative); Leukocyte Esterase Urine Negative (Negative); Nitrite Urine Negative (Negative); Specific Gravity - Urine >= 1.030 (1.005-1.025); Urine Blood Negative (Negative); Urine Ketones Trace mg/dL (Negative); Urine Protein Negative (Neg-Trace)
[2024-09-16 11:40] LABS: Basophils Percent Auto 0.6 % (0-2); Eosinophils Absolute Auto 0.4 X10*3/uL (0.0-0.4); Eosinophils Percent Auto 6.6 % (0-4); Hematocrit 48.1 % (42.0-52.0); Hemoglobin 16.8 g/dl (14.0-18.0); Imm Gran Abs Auto 0.02 X10*3/uL (0.00-0.03); Imm Gran Pct Auto 0.3 % (0.0-0.4); Lymphocytes Absolute Auto 2.2 X10*3/uL (1.2-4.9); Mean Corpuscular HGB Conc 34.9 g/dl (31.0-36.0); Mean Corpuscular Hemoglobin 31.6 pg (27.0-33.0); Mean Corpuscular Volume 90.6 fL (80.0-98.0); Mean Platelet Volume 12.5 fL (9.4-12.4); Monocytes Absolute Auto 0.3 X10*3/uL (0.1-1.2); Monocytes Percent Auto 4.8 % (2-11); Neutrophils Absolute Auto 3.3 x10*3/uL (2.0-8.3); Neutrophils Percent Auto 52.7 % (45-73); Platelet Count 195 X10*3/uL (160-400); Red Blood Count 5.31 X10*6/uL (4.60-5.80); Red Cell Distribution Width 12.1 % (11.0-16.0); White Blood Count 6.3 X10*3/uL (4.8-10.8)
[2024-09-16 12:07] LABS: Creatinine Urine 305.11 mg/dL; Microalbum/Creatinine Ratio Ur 4.9 ug/mg cr (<30)
[2024-09-16 12:11] LABS: Alanine Aminotransferase 34 U/L (0-40); Albumin Level 4.3 g/dL (3.5-5.0); Alkaline Phosphatase 67 U/L (39-117); Anion Gap 9 (12-20); Aspartate Amino Transferase 25 U/L (5-37); Blood Urea Nitrogen 15 mg/dL (9-16); Calcium 9.1 mg/dL (8.4-10.2); Carbon Dioxide 27 mmol/L (22-29); Chloride 111 mmol/L (96-108); Cholesterol 160 mg/dL (<200); Estimated Glomerular Filt Rate > 60; Glucose Fasting 93 mg/dL (60-99); HDL Cholesterol 34 mg/dL (>40); LDL Cholesterol Calculated 101 mg/dL (<100); Potassium 4.4 mmol/L (3.3-5.1); Sodium 143 mmol/L (135-145); TSH reflex Free T4 1.59 uIU/mL (0.32-4.0); Total Protein 6.4 g/dL (6.5-8.0); Triglycerides 125 mg/dL (<150)
[2024-09-16 12:28] LABS: Folate 9.9 ng/mL (> or = 4.0); Prostate Specific Antigen Scr 0.46 ng/mL (<0.05-4.0); Vitamin B12 360 pg/mL (200-900)
[2024-09-17 04:39] LABS: LDL Cholesterol Direct 114 mg/dL (<100)
== END 2024-09-16 08:13 | disposition home or self-care (01) ==
LOC: HO.WFDLDS 08:12
PROVIDERS: Referring Provider Clinical Nurse Specialist Psychiatric/Mental Health; Visit Provider Family Medicine
DX: Z12.5 Encounter for screening for malignant neoplasm of prostate (principal); Z00.00 Encounter for general adult medical examination without abnormal findings; I10 Essential (primary) hypertension; F41.1 Generalized anxiety disorder; F41.0 Panic disorder [episodic paroxysmal anxiety]; E87.5 Hyperkalemia
CPT/HCPCS: 36415; 80053; 80061; 81003; 82043; 82570; 82607; 82746; 83721; 83735; 84153; 84443; 85025

== ENCOUNTER → 2024-09-25 13:41 | Outpatient (AMB) | payer BC, SELFPAY ==
--- NOTE | 2024-09-25 13:38 | MHC.PC.OV ---
Intake Visit Reasons: f/u CPE-labs via telemed Intake Note: patient is scheduled for lab review Wood Heel Flap Rubber Required: No Allergies No Known Allergies [No Known Allergies*] Allergy (Verified 09/25/24 13:39) Medication List - Last Reconciled 09/25/24 by Tra Blackburn MD alprazolam 0.5 mg PO DAILY 30 days lamotrigine 100 mg PO DAILY 90 days nicotine 1 patch transdermal Q24H 28 days Tobacco use date assessed: 08/17/23 Dental Screening Dental Screen Date: 09/12/23 HPI f/u CPE-labs via telemed HPI Details Patient?presents?by?telemedicine?to?review?CPE-labs LDL?cholesterol?is?little?high?and?HDL?is?low His?other?labs?are?okay PFSH Medical History Lower back pain Surgical History History of elbow surgery Family History Father CVD (cardiovascular disease) Myocardial infarction Mental health disorder Mother Mental health disorder Brother No problems noted. Sister Mental health disorder Sister No problems noted. Son No problems noted. Son No problems noted. Social History Housing: House Alcohol intake: never Patient Tobacco Use Status: Current everyday Tobacco user Tobacco use type: Cigarette Cigarette Packs Per Day: 1 Cigarettes Per Day: 15 e-Cigarette/Vaping Use: Never Used Second Hand Smoke Exposure: Yes service: No Current occupational status: employed Cognitive needs: No Hearing needs: No Vision needs: Yes (Glasses) Questionnaire Thrive Questionnaire Date Thrive assessed: 05/16/24 JANUARY-7 AMB Questionnaire JANUARY-7 Date JANUARY - 7 assessed: 09/03/24 Source: Developed by Drs. Gelacio Enriquez, Pretty Ricks, Betito Ramirez and colleagues, with an educational bhumika from [employer]. Review of Systems Const Denies chills, Denies fatigue, Denies fever(s), Denies headache(s) and Denies weakness ENT Denies dizziness and Denies headache(s) Card Denies chest pain, Denies lightheadedness, Denies dyspnea and Denies other (Palpitations) Resp Denies cough, Denies dyspnea, Denies wheezing and Denies other ( shortness of breath) Musc Denies numbness and Denies tingling Neuro Denies dizziness, Denies headache(s), Denies numbness, Denies tingling, Denies paresthesias and Denies weakness Psych Denies anxiety and Denies depression Endo Denies fatigue Aller/Immun Denies wheezing Physical exam (Primary Care) Tobacco/Smoking Status: Tobacco use Status Tobacco use date assessed 08/17/23 09/25/24 13:39 Patient Tobacco Use Status Current everyday Tobacco 09/25/24 13:39 Tobacco use type Cigarette 09/25/24 13:39 e-Cigarette/Vaping Use Never Used 09/25/24 13:39 Thrive Assessment: Date of Thrive Assessment Date Thrive assessed 05/16/24 09/25/24 13:39 Const General: no acute distress and well developed Nutritional Appearance: well nourished Orientation/consciousness: patient oriented x3 HENMT Head: Yes normocephalic and Yes atraumatic Eyes General: appearance normal, both eyes and all related structures Pupils: Equal, round and reactive pupils present EOM: EOMs intact bilaterally Resp Effort & Inspection: normal respiratory effort Auscultation: clear to auscultation bilaterally Cardio Rate: regular rate Rhythm: regular rhythm Heart sounds: S1 normal heart sound present, S2 normal heart sound present, no gallops, no murmurs and no rubs Neuro General: patient oriented x3 and gait normal Cranial nerves: Yes Equal, round and reactive pupils present Psych Affect: normal affect Telehealth Telehealth Telehealth Platform: Telephone Location of provider rendering services: practice address Location of patient: address on file Patient Identification confirmed using: Name, : Yes Telehealth method: voice only Patient verbally consented to treatment: Yes Patient verbally consented to billing insurance company: Yes Patient informed of any privacy concerns related to visit: Yes Minutes spent on Phone/Video with Pt.: 5 Coding Level of Care Code Tele Est Pt Level 2 (16744) Diagnoses Hyperlipidemia E78.5 Assessment & Plan Assessment & Plan (1) Hyperlipidemia: Code(s): E78.5 - Hyperlipidemia, unspecified Category: Medical Plan: Encouraged?lifestyle?changes Will?recheck?prior?to?November?appointment Orders: Orders Comprehensive [place]. Panel Fast Today Z00.00 - Encounter for general adult medical examination without abnormal findings Lipid Panel Today Z00.00 - Encounter for general adult medical examination without abnormal findings
--- OUTSIDE RECORDS SUMMARY | 2024-09-25 15:28 | XMS_ITS | Clinical Summary ---
Author Organization [facility] Address [address] [place] [address] Care Team Providers Care Hvac Estimator Name Role Phone Unavailable Primary Care Provider [...]
== END ==
LOC: HO.HMCFM 13:41
PROVIDERS: PCP Family Medicine; Visit Provider Family Medicine
DX: E78.5 Hyperlipidemia, unspecified (principal)

== ENCOUNTER → 2024-09-25 13:41 | Outpatient (BNVA) | payer BC, SELFPAY | PROVIDERS: PCP Family Medicine; Visit Provider Family Medicine ==

== ENCOUNTER 2024-10-09 10:44 | Outpatient (AMB) | payer BC, SELFPAY ==
--- NOTE | 2024-10-09 11:11 | A.OFFPC_ITS ---
Vital Signs 10/09/24 11:13 Height 5 ft 9 in Weight 195 lb 4 oz BMI 28.8 BP 110/66 Blood Pressure Location Lt brachial Position Sitting Respiration 14 Pulse 69 Pulse Source Pulse Oximeter Temp 97.7 F Temp Source Oral Pulse Oximetry (%) 96 Oxygen Delivery Method Room Air Intake Visit Reasons: fmla paperwork change Intake Note: patient is scheduled to follow up for fmla update Death Claim Examiner Required: No Allergies No Known Allergies (No Known Allergies*) Allergy (Verified 10/09/24 11:12) Tobacco use date assessed: 08/17/23 Dental Screening Dental Screen Date: 09/12/23 HPI fmla paperwork change HPI Details 49 y/o male presents today for FMLA nicole rwork. Ongoing?anxiety?and?depression Needs?continued?extension?of?FMLA?for intermittent?leave?and?no?overtime PFSH Medical History Lower back pain Surgical History History of elbow surgery Family History Father CVD (cardiovascular disease) Myocardial infarction Mental health disorder Mother Mental health disorder Brother No problems noted. Sister Mental health disorder Sister No problems noted. Son No problems noted. Son No problems noted. Social History Housing: House Alcohol intake: never Patient Tobacco Use Status: Current everyday Tobacco user Tobacco use type: Cigarette Cigarette Packs Per Day: 1 Cigarettes Per Day: 15 e-Cigarette/Vaping Use: Never Used Second Hand Smoke Exposure: Yes service: No Current occupational status: employed Cognitive needs: No Hearing needs: No Vision needs: Yes (Glasses) Questionnaire Thrive Questionnaire Date Thrive assessed: 05/16/24 I am a: Patient What is your living situation today?: I have a steady place to live Within the past 12 months, did the food you bought not last and you didn't have the money to get more?: Never true Within the past 12 months, did you worry whether your food would run out before you got money to buy more?: Never true Do you have trouble paying for medicines?: No Do you have trouble getting transportation to medical appointments?: No Do you have trouble paying your heating and electricity bill?: No Do you have trouble taking care of your child, family member or friend?: No Do you have trouble with day-to-day activities such as bathing, preparing meals, shopping, managing finances, etc.?: No Are you currently unemployed and looking for a job?: No Are you interested in more education?: I choose not to answer this question Please select the resources that you would like help with: None Currently or been in a relationship where the following occur: No concerns reported THRIVE Score: 0 JANUARY-7 AMB Questionnaire JANUARY-7 Date JANUARY - 7 assessed: 09/03/24 Source: Developed by Drs. Gelacio Enriquez, Pretty Ricks, Betito Ramirez and colleagues, with an educational bhumika from [employer]. Review of Systems Const Denies chills, Denies fatigue, Denies fever(s), Denies headache(s) and Denies weakness ENT Denies dizziness and Denies headache(s) Card Denies dyspnea Resp Denies cough, Denies dyspnea, Denies wheezing and Denies other (shortness of breath) Musc Denies numbness and Denies tingling Neuro Denies dizziness, Denies headache(s), Denies numbness, Denies tingling and Denies weakness Psych Reports anxiety and Reports depression Endo Denies fatigue Aller/Immun Denies wheezing Physical exam (Primary Care) Vital Signs: Last Vital Signs Temp 97.7 F 10/09/24 11:13 Pulse 69 10/09/24 11:13 Resp 14 10/09/24 11:13 BP 110/66 10/09/24 11:13 Pulse Ox 96 10/09/24 11:13 Oxygen Delivery Method Room Air 10/09/24 11:13 BMI result Body Mass Index 28.8 Tobacco/Smoking Status: Tobacco use Status Tobacco use date assessed 08/17/23 10/09/24 11:16 Patient Tobacco Use Status Current everyday Tobacco 10/09/24 11:16 Tobacco use type Cigarette 10/09/24 11:16 e-Cigarette/Vaping Use Never Used 10/09/24 11:16 Thrive Assessment: Date of Thrive Assessment Date Thrive assessed 05/16/24 10/09/24 11:16 Currently or been in a relationship where the following occur: No concerns reported Const General: well developed; No acute distress Nutritional Appearance: well nourished Orientation/consciousness: patient oriented x3 [facility] Head: Yes normocephalic and Yes atraumatic Eyes General: appearance normal, both eyes and all related structures Pupils: Equal, round and reactive pupils present EOM: EOMs intact bilaterally Resp Effort & Inspection: normal respiratory effort Auscultation: clear to auscultation bilaterally Cardio Rate: regular rate Rhythm: regular rhythm Heart sounds: S1 normal heart sound present, S2 normal heart sound present, no gallops, no murmurs and no rubs Neuro General: patient oriented x3 and gait normal Cranial nerves: Yes Equal, round and reactive pupils present Psych Affect: Anxious affect present Coding Level of Care Code Est Pt Level 3 (41335) Diagnoses Anxiety and depression F41.9; F32.A Assessment & Plan Assessment & Plan (1) Anxiety and depression: Code(s): F41.9 - Anxiety disorder, unspecified; F32.A - Depression, unspecified Category: Medical Plan: Ongoing?anxiety?and?depression?PTSD?and?major?depression. Now?has?a?therapist?and?psychiatrist.??He?is?taking?medication?and?undergoing?ps ychotherapy. Patient?says?his?therapist?feels?that?he?is?improving?but?advises?he?should ?not?work?excessive?hours>?about?8?hours?per?day?or?40?hours?per?week. We?have?discussed?this?and?I?agree. Will?fill?out?FMLA?paperwork?limiting?his?work?hours?to?exclude?overtime. Will?also?give?him?opportunity?for?intermittent?leave?during?flare-ups. Will?continue?this?from?10/09/2024?through 04/16/2025.
[2024-10-09 11:13] VITALS: BP 110/66; PULSE 69; RESP 14; TEMP 36.5; O2SAT 96; BMI 28.8
--- OUTSIDE RECORDS SUMMARY | 2024-10-09 12:41 | XMS_ITS | Clinical Summary ---
Author Organization [facility] Address [address] [place] [address] Care Team Providers Care Fraud Representative Name Role Phone Unavailable Primary Care Provider [...]
== END 2024-10-09 13:52 | disposition home or self-care (01) ==
LOC: HO.HMCFM 10:44
PROVIDERS: PCP Family Medicine; Visit Provider Family Medicine
DX: F41.9 Anxiety disorder, unspecified (principal); F32.A Depression, unspecified

== ENCOUNTER → 2024-10-09 10:44 | Outpatient (BNVA) | payer BC, SELFPAY | PROVIDERS: PCP Family Medicine; Visit Provider Family Medicine | DX: Z13.89 Encounter for screening for other disorder (principal) ==

== ENCOUNTER 2024-11-29 15:20 | Outpatient (AMB) | payer BC, SELFPAY ==
--- OUTSIDE RECORDS SUMMARY | 2024-11-29 15:23 | XMS_ITS | Clinical Summary ---
Author Organization [facility] Address [address] [place] [address] Care Team Providers Care Industrial Safety And Health Specialist Name Role Phone Unavailable Primary Care Provider [...]
--- NOTE | 2024-11-29 15:24 | MHC.OFFVIS ---
Vital Signs 11/29/24 15:25 Height 5 ft 9 in Weight 195 lb BMI 28.8 BP 128/76 Blood Pressure Location Rt brachial Position Sitting Pulse 72 Pulse Source Pulse Oximeter Pulse Oximetry (%) 96 Oxygen Delivery Method Room Air Intake Visit Reasons: Colonoscopy Screening Intake Note: New pt for initial colo consult. Hx of GERD per PCP. CC: C.O. intermittent bloating and abd cramping. No additional sx or concerns at this time. No ID'd trigger foods. Tempering Machine Operator Required: No Accompanied by: Self / Same As Patient Allergies No Known Allergies (No Known Allergies*) Allergy (Verified 11/29/24 15:24) HPI HPI Colonoscopy Screening: Details: 49 year old? male with past medical history of hyperlipidemia, insomnia, JANUARY is here today for pre colonoscopy screening.? Patient was sent to us by his PCP.? This is his first colonoscopy screening.? Patient denies any gastrointestinal symptoms in the past or at present.? However patient reports that occasionally he will have a abdominal bloating depending on what he eats. Denies any personal or family history of gastrointestinal disease, colon polyps, or CRC.? Denies history of difficulty with sedation or anesthesia in the past.? Negative for history of sleep apnea.? Denies any history of cardiac, renal, pulmonary, or hepatic disease.?? No history of infectious? diseases like hepatitis A, B, C, HIV or tuberculosis.? Patient is not on any anticoagulation patient reports severe and anxiety in the past few years [facility] Medical History Lower back pain Surgical History History of elbow surgery Family History Father CVD (cardiovascular disease) Myocardial infarction Mental health disorder Mother Mental health disorder Brother No problems noted. Sister Mental health disorder Sister No problems noted. Son No problems noted. Son No problems noted. Social History Housing: House Alcohol intake: never Patient Tobacco Use Status: Current everyday Tobacco user Tobacco use type: Cigarette Cigarette Packs Per Day: 1 Cigarettes Per Day: 15 e-Cigarette/Vaping Use: Never Used Second Hand Smoke Exposure: Yes service: No Current occupational status: employed Cognitive needs: No Hearing needs: No Vision needs: Yes (Glasses) Review of Systems Const Denies weight gain and Denies weight loss ENT Reports no additional complaints, Denies dysphagia and Denies odynophagia Card Reports no additional complaints Resp Reports no additional complaints GI Denies abdominal pain, Denies belching, Denies melena, Reports bloating (Occasional), Denies change in bowel habits, Denies dysphagia, Denies excessive flatus, Denies dyspepsia, Denies heartburn, Denies diarrhea, Denies loose stools, Denies nausea, Denies odynophagia and Denies vomiting Reports no additional complaints Musc Reports no additional complaints Neuro Reports no additional complaints Psych Reports no additional complaints Endo Reports no additional complaints Physical Exam Vital Signs: Last Vital Signs Pulse 72 11/29/24 15:25 BP 128/76 11/29/24 15:25 Pulse Ox 96 11/29/24 15:25 Oxygen Delivery Method Room Air 11/29/24 15:25 BMI result Body Mass Index 28.8 Const General: healthy appearing, no acute distress and well developed Nutritional Appearance: well nourished and obese Orientation/consciousness: patient oriented x3 Resp Effort & Inspection: normal respiratory effort, able to speak in complete sentences, no tracheal deviation and symmetric chest movement Auscultation: clear to auscultation bilaterally Cardio Rate: regular rate GI Inspection: Yes normal to inspection, No distended and Yes obesity Palpation (GI): Soft to palpation, not firm, nontender and No hepatosplenomegaly present Auscultation: normal bowel sounds General: Yes no CVA tenderness Back/Spine/Pelvis Back: no CVA tenderness Skin General skin exam: elasticity normal, turgor normal and dry skin Neuro General: patient oriented x3 Psych Appearance: grossly normal Mental Status: mental status grossly normal Assessment & Plan Assessment & Plan (1) Screening for colon cancer: Code(s): Z12.11 - Encounter for screening for malignant neoplasm of colon Category: Medical Plan Patient denies any GI, cardiac or respiratory symptoms.? However patient admits to occasional abdominal bloating postprandially depending on what he eats. Denies any issues with anesthesia in the past.? Denies any history of sleep apnea.? No history infectious diseases in the past or present.? Not on any anticoagulation therapy.? No family or personal history of colon cancer or polyps.? Patient reports severe anxiety about this procedure. Increased in anxiety in the past few years. Patient denies melena, hematochezia, unintentional weight loss or ribbon like stools.? Discussed at length the pre-procedure,? prep, diet & medications as well as what to expect prior, during and after the procedure.?? Stressed the importance of good bowel prep.? Recommended the use of Vaseline or Calmoseptine OTC & baby wipes with bowel movements to promote comfort.? ?Patient verbalizes understanding and agrees to plan of care.? He was given the opportunity to ask questions and all questions answered.? We will see him after the procedure.? Medications: New bisacodyl (Dulcolax (bisacodyl)) take 4 tabs at noon the day before your colonoscopy 20 mg (4 x 5 mg) PO ONCE 4 tabs 0RF constipation 1 day Z12.11 - Encounter for screening for malignant neoplasm of colon polyethylene glycol 3350 (Miralax) As directed by gastroenterology department at [facility] 238 grams PO ONCE 238 grams 0RF Z12.11 - Encounter for screening for malignant neoplasm of colon Coding Level of Care Code New Pt Level 3 (10605) Diagnoses Screening for colon cancer Z12.11 Time Spent (min) 40 Comment 30 minutes spent with patient and additional 15 minutes spent reviewing his records
[2024-11-29 15:25] VITALS: BP 128/76; PULSE 72; O2SAT 96; BMI 28.8
== END 2024-11-29 15:54 | disposition home or self-care (01) ==
LOC: HO.HGI 15:21
PROVIDERS: PCP Family Medicine; Visit Provider Nurse Practitioner Family
DX: Z01.818 Encounter for other preprocedural examination (principal); Z12.11 Encounter for screening for malignant neoplasm of colon
CPT/HCPCS: S0285

== ENCOUNTER 2025-02-05 08:22 | Outpatient (AMB) | payer BC, SELFPAY ==
--- NOTE | 2025-02-05 08:28 | MHC.PC.OV ---
Vital Signs 02/05/25 08:30 Height 5 ft 9 in Weight 201 lb BMI 29.7 BP 106/70 Blood Pressure Location Rt brachial Position Sitting Respiration 14 Pulse 79 Pulse Source Pulse Oximeter Temp 98.2 F Temp Source Temporal Artery Scan Pulse Oximetry (%) 97 Oxygen Delivery Method Room Air Intake Visit Reasons: f/u anxiety/depression Intake Note: Cory is follow up today for anxiety and depression. Patient went to [facility] ER on Monday with an elevated BP, EKG was normal. Patient was never seen by doctor. Labs were done. Allergies No Known Allergies (No Known Allergies*) Allergy (Verified 02/05/25 08:28) Medication List - Last Reconciled 02/05/25 by rTa Blackburn MD alprazolam 0.5 mg PO DAILY 30 days bisacodyl (Dulcolax (bisacodyl)) 20 mg (4 x 5 mg) PO ONCE 1 day lamotrigine 100 mg PO DAILY 90 days nicotine 1 patch transdermal Q24H 28 days polyethylene glycol 3350 (Miralax) 238 grams PO ONCE Tobacco use date assessed: 02/05/25 Dental Screening Dental Screen Date: 02/05/25 Did you have a dental visit in the last 12 months?: No Did you have a dental problem in the last 6 months where you did not have access to dental care?: No Was dental information given to patient?: Patient declined HPI f/u anxiety/depression HPI Details 49 y/o male presents to f/u anxiety/depression. Recent ED visit for chest pain, arm pain. Pt notes cardiac work up was unrevealing. Pt describes arm pain starts around his shoulders. PHQ-9 5, JANUARY-7 today. Pt reports ongoing difficulty sleeping, worsening anxiety. He is on alprazolam 0.5mg, lamotrigine 100mg. HPI Comments History of Present Illness Details Documentation assistance for Tra Blackburn MD, was provided by Jose Moran, Consolidation Accountant on 02/05/2025 at 8:57 AM EST. I, Dr. Blackburn, have read, observed, and verified documentation. [facility] Medical History Lower back pain Surgical History History of elbow surgery Family History Father CVD (cardiovascular disease) Myocardial infarction Mental health disorder Mother Mental health disorder Brother No problems noted. Sister Mental health disorder Sister No problems noted. Son No problems noted. Son No problems noted. Social History (Updated 02/05/25 @ 08:30 by Nubia Mesa CMA) Housing: House Alcohol intake: never Patient Tobacco Use Status: Former Tobacco user Tobacco use type: Cigarette Cigarette Packs Per Day: 1 Cigarettes Per Day: 15 e-Cigarette/Vaping Use: Currently Using Frequency of e-Cigarette/Vaping Use: Nicotine Second Hand Smoke Exposure: Yes Use of substances other than those prescribed or required for medical reasons: No service: No Current occupational status: employed Cognitive needs: No Hearing needs: No Vision needs: Yes (Glasses) Questionnaire PHQ-9 Over the last 2 weeks, how often have you been bothered by any of the following problems? 1. Little interest or pleasure in doing things: several days 2. Feeling down, depressed, or hopeless: several days 3. Trouble falling or staying asleep, or sleeping too much: several days 4. Feeling tired or having little energy: several days 5. Poor appetite or overeating: not at all 6. Feeling bad about yourself - or that you are a failure or have let yourself or your family down: several days 7. Trouble concentrating on things, such as reading the newspaper or watching television: not at all 8. Moving or speaking so slowly that other people could have noticed. Or the opposite - being so fidgety or restless that you have been moving around a lot more than usual: not at all 9. Thoughts that you would be better off or of hurting yourself in some way: not at all Total score: 5 Depression Screening Interpretation: Positive Depression Screening Done: Yes 56612 - PHQ-9 Billing: Yes Source: Developed by Drs. Gelacio Enriquez, Pretty Ricks, Betito Ramirez and colleagues, with an educational bhumika from [employer]. Thrive Questionnaire Date Thrive assessed: 05/16/24 I am a: Patient What is your living situation today?: I have a steady place to live Within the past 12 months, did the food you bought not last and you didn't have the money to get more?: Never true Within the past 12 months, did you worry whether your food would run out before you got money to buy more?: Never true Do you have trouble paying for medicines?: No Do you have trouble getting transportation to medical appointments?: No Do you have trouble paying your heating and electricity bill?: No Do you have trouble taking care of your child, family member or friend?: No Do you have trouble with day-to-day activities such as bathing, preparing meals, shopping, managing finances, etc.?: No Are you currently unemployed and looking for a job?: No Are you interested in more education?: I choose not to answer this question Please select the resources that you would like help with: None Currently or been in a relationship where the following occur: No concerns reported THRIVE Score: 0 AUDIT C Alcohol Use Questionnaire (AUDIT-C) 1. How often do you have a drink containing alcohol?: Never 3. How often do you have six or more drinks on one occasion?: Never Total Score: 0 JANUARY-7 AMB Questionnaire JANUARY-7 Date JANUARY - 7 assessed: 02/05/25 Feeling nervous, anxious, or on edge: 3 = Nearly every day Not being able to stop or control worryin = Nearly every day Worrying too much about different things: 3 = Nearly every day Trouble relaxin = More than half the days Being so restless that it is hard to sit still: 0 = Not at all Becoming easily annoyed or irritable: 1 = Several days Feeling afraid as if something awful might happen: 3 = Nearly every day Total JANUARY-7 score (0-4 normal; 5-9 mild; 10-14 moderate; 15-21 severe): 15 Source: Developed by Drs. Gelacio Enriquez, Pretty Ricks, Betito Ramirez and colleagues, with an educational bhumika from [employer]. JANUARY-7 Assessment Billing JANUARY-7 Assessment Tool: JANUARY-7 Assessment 51950 Review of Systems Const Denies chills, Denies fatigue, Denies fever(s), Denies headache(s) and Denies weakness ENT Denies dizziness and Denies headache(s) Card Denies dyspnea Resp Denies cough, Denies dyspnea, Denies wheezing and Denies other (shortness of breath) Musc Denies numbness and Denies tingling Neuro Denies dizziness, Denies headache(s), Denies numbness, Denies tingling and Denies weakness Psych Denies anxiety and Denies depression Endo Denies fatigue Aller/Immun Denies wheezing Physical exam (Primary Care) Vital Signs: Last Vital Signs Temp 98.2 F 02/05/25 08:30 Pulse 79 02/05/25 08:30 Resp 14 02/05/25 08:30 BP 106/70 02/05/25 08:30 Pulse Ox 97 02/05/25 08:30 Oxygen Delivery Method Room Air 02/05/25 08:30 BMI result Body Mass Index 29.7 Tobacco/Smoking Status: Tobacco use Status Tobacco use date assessed 02/05/25 02/05/25 08:32 Patient Tobacco Use Status Former Tobacco user 02/05/25 08:32 Tobacco use type Cigarette 02/05/25 08:32 e-Cigarette/Vaping Use Currently Using 02/05/25 08:32 PHQ-9: PHQ-9 Score PHQ-9: Total score 5 02/05/25 08:36 Depression Screening Interpretation: Positive Thrive Assessment: Date of Thrive Assessment Date Thrive assessed 05/16/24 02/05/25 08:32 Currently or been in a relationship where the following occur: No concerns reported Const General: well developed; No acute distress Nutritional Appearance: well nourished Orientation/consciousness: patient oriented x3 HENMT Head: Yes normocephalic and Yes atraumatic Eyes General: appearance normal, both eyes and all related structures Pupils: Equal, round and reactive pupils present EOM: EOMs intact bilaterally Resp Effort & Inspection: normal respiratory effort Neuro General: patient oriented x3 and gait normal Cranial nerves: Yes Equal, round and reactive pupils present Psych Affect: normal affect Coding Level of Care Code Est Pt Level 4 (45370) Diagnoses Anxiety and depression F41.9; F32.A Chest pain R07.9 Arm pain M79.603 Left shoulder pain M25.512 Additional Codes JANUARY-7 Assessment Billing - JANUARY-7 Assessment Tool: JANUARY-7 Assessment 39505 ([id number]) PHQ-9 - 23867 - PHQ-9 Billing: Yes ([id number]) Assessment & Plan Assessment & Plan (1) Anxiety and depression: Code(s): F41.9 - Anxiety disorder, unspecified; F32.A - Depression, unspecified Category: Medical Plan: Ongoing anxiety which has been worsened lately. Some difficulty with sleep Continue lamotrigine. Will increase his alprazolam to 0.5 mg b.i.d. PRN Follow-up with therapist and can follow-up with psychiatrist as needed (2) Chest pain: Code(s): R07.9 - Chest pain, unspecified Category: Medical Plan: Atypical chest pain which began as shoulder pain. EKG: Normal sinus rhythm, normal axis, no hypertrophy, no ST-T-wave changes. Normal EKG and unchanged from previous EKG in May Atypical chest pain, Likely secondary to anxiety Will treat underlying causes Discuss relaxation strategies w/ therapist (3) Arm pain: Code(s): M79.603 - Pain in arm, unspecified Category: Medical (4) Left shoulder pain: Code(s): M25.512 - Pain in left shoulder Category: Medical Plan Left shoulder & arm pain and patient has repetitive work with arm raised up over his head Start physical therapy Can use NSAIDs Orders: Orders PT Evaluation and Treatment Today M25.512 - Pain in left shoulder, M79.603 - Pain in arm, unspecified AMB EKG-In Office Today R07.9 - Chest pain, unspecified Medications: New naproxen 500 mg PO BID PRN 60 tabs 1RF pain 30 days Changed From alprazolam 0.5 mg PO DAILY 30 days 30 tabs 3RF To alprazolam 0.5 mg PO BID PRN 60 tabs 3RF anxiety 30 days
[2025-02-05 08:30] VITALS: BP 106/70; PULSE 79; RESP 14; TEMP 36.8; O2SAT 97; BMI 29.7
--- OUTSIDE RECORDS SUMMARY | 2025-02-05 08:35 | XMS_ITS | Clinical Summary ---
Author Organization [facility] Address [address] [place] [address] Care Team Providers Care Air Table Operator Name Role Phone Unavailable Primary Care Provider [...] series) 02/10/1995 COVID-19 Vaccine (2023-2 5 season) 2024 Pneumococcal Vaccine: Pediat claudia (0-5 Years) and At-Risk Patients (6 to 49 Years) Aged Out No longer eligible b ased on patient's age to complete this topic
== END 2025-02-05 09:13 | disposition home or self-care (01) ==
LOC: HO.HMCFM 08:23
PROVIDERS: PCP Family Medicine; Visit Provider Family Medicine
DX: F41.9 Anxiety disorder, unspecified (principal); F32.A Depression, unspecified; R07.9 Chest pain, unspecified; M79.603 Pain in arm, unspecified; M25.512 Pain in left shoulder

== ENCOUNTER → 2025-02-05 08:22 | Outpatient (BNVA) | payer BC, SELFPAY | PROVIDERS: PCP Family Medicine; Visit Provider Family Medicine | DX: M25.512 Pain in left shoulder (principal); F41.9 Anxiety disorder, unspecified; F32.A Depression, unspecified; R07.9 Chest pain, unspecified; M79.603 Pain in arm, unspecified | CPT/HCPCS: 96127 ==

== ENCOUNTER 2025-04-03 14:03 | Outpatient (AMB) | payer BC, SELFPAY ==
--- NOTE | 2025-04-03 14:05 | MHC.PC.OV ---
Vital Signs 04/03/25 14:10 Height 5 ft 9 in Weight 201 lb 4 oz BMI 29.7 BP 123/85 Blood Pressure Location Rt brachial Position Sitting Respiration 12 Pulse 81 Pulse Source Pulse Oximeter Temp 97.0 F Temp Source Temporal Artery Scan Pulse Oximetry (%) 98 Oxygen Delivery Method Room Air Intake Visit Reasons: f/u HLD, anxiety/depression Intake Note: Follow up on hdl and fmla paperwork Grab Driver Required: No Allergies No Known Allergies (No Known Allergies*) Allergy (Verified 04/03/25 14:06) Tobacco use date assessed: 04/03/25 Dental Screening Dental Screen Date: 04/03/25 Did you have a dental visit in the last 12 months?: Yes Did you have a dental problem in the last 6 months where you did not have access to dental care?: No Was dental information given to patient?: Patient has dentist HPI f/u HLD, anxiety/depression HPI Details 50 y/o male presents to f/u anxiety/depression, FMLA paperwork. PHQ-9 JANUARY-7 improved today. Pt notes he continues therapy, meds. He feels mood has improved recently. [facility] Medical History Lower back pain Surgical History History of elbow surgery Family History Father CVD (cardiovascular disease) Myocardial infarction Mental health disorder Mother Mental health disorder Brother No problems noted. Sister Mental health disorder Sister No problems noted. Son No problems noted. Son No problems noted. Social History (Updated 02/05/25 @ 08:30 by Nubia Mesa CMA) Housing: House Alcohol intake: never Patient Tobacco Use Status: Former Tobacco user Tobacco use type: Cigarette Cigarette Packs Per Day: 1 Cigarettes Per Day: 15 e-Cigarette/Vaping Use: Currently Using Second Hand Smoke Exposure: Yes service: No Current occupational status: employed Cognitive needs: No Hearing needs: No Vision needs: Yes (Glasses) Questionnaire PHQ-9 Over the last 2 weeks, how often have you been bothered by any of the following problems? 1. Little interest or pleasure in doing things: not at all 2. Feeling down, depressed, or hopeless: not at all 3. Trouble falling or staying asleep, or sleeping too much: not at all 4. Feeling tired or having little energy: not at all 5. Poor appetite or overeating: not at all 6. Feeling bad about yourself - or that you are a failure or have let yourself or your family down: not at all 8. Moving or speaking so slowly that other people could have noticed. Or the opposite - being so fidgety or restless that you have been moving around a lot more than usual: not at all 9. Thoughts that you would be better off or of hurting yourself in some way: not at all Depression Screening Interpretation: Negative Depression Screening Done: Yes 63079 - PHQ-9 Billing: Yes Source: Developed by Drs. Gelacio Enriquez, Pretty Ricks, Betito Ramirez and colleagues, with an educational bhumika from [employer]. Thrive Questionnaire Date Thrive assessed: 04/03/25 I am a: Patient What is your living situation today?: I have a steady place to live Within the past 12 months, did the food you bought not last and you didn't have the money to get more?: Never true Within the past 12 months, did you worry whether your food would run out before you got money to buy more?: Never true Do you have trouble paying for medicines?: No Do you have trouble getting transportation to medical appointments?: No Do you have trouble paying your heating and electricity bill?: No Do you have trouble taking care of your child, family member or friend?: No Do you have trouble with day-to-day activities such as bathing, preparing meals, shopping, managing finances, etc.?: No Are you currently unemployed and looking for a job?: No Are you interested in more education?: I choose not to answer this question Please select the resources that you would like help with: None Currently or been in a relationship where the following occur: No concerns reported THRIVE Score: 0 JANUARY-7 AMB Questionnaire JANUARY-7 Date JANUARY - 7 assessed: 04/03/25 Feeling nervous, anxious, or on edge: 0 = Not at all Not being able to stop or control worryin = Not at all Worrying too much about different things: 0 = Not at all Trouble relaxin = Not at all Being so restless that it is hard to sit still: 0 = Not at all Becoming easily annoyed or irritable: 0 = Not at all Feeling afraid as if something awful might happen: 0 = Not at all Total JANUARY-7 score (0-4 normal; 5-9 mild; 10-14 moderate; 15-21 severe): 0 Source: Developed by Drs. Gelacio Enriquez, Pretty Ricks, Betito Ramirez and colleagues, with an educational bhumika from [employer]. JANUARY-7 Assessment Billing JANUARY-7 Assessment Tool: JANUARY-7 Assessment 37847 Review of Systems Const Denies chills, Denies fatigue, Denies fever(s), Denies headache(s) and Denies weakness ENT Denies dizziness and Denies headache(s) Card Denies dyspnea Resp Denies cough, Denies dyspnea, Denies wheezing and Denies other (shortness of breath) Musc Denies numbness and Denies tingling Neuro Denies dizziness, Denies headache(s), Denies numbness, Denies tingling and Denies weakness Psych Denies anxiety and Denies depression Endo Denies fatigue Aller/Immun Denies wheezing Physical exam (Primary Care) Vital Signs: Last Vital Signs Temp 97.0 F 04/03/25 14:10 Pulse 81 04/03/25 14:10 Resp 12 04/03/25 14:10 BP 123/85 04/03/25 14:10 Pulse Ox 98 04/03/25 14:10 Oxygen Delivery Method Room Air 04/03/25 14:10 BMI result Body Mass Index 29.7 Tobacco/Smoking Status: Tobacco use Status Tobacco use date assessed 04/03/25 04/03/25 14:06 Patient Tobacco Use Status Former Tobacco user 04/03/25 14:06 Tobacco use type Cigarette 04/03/25 14:06 e-Cigarette/Vaping Use Currently Using 04/03/25 14:06 Depression Screening Interpretation: Negative Thrive Assessment: Date of Thrive Assessment Date Thrive assessed 04/03/25 04/03/25 14:06 Currently or been in a relationship where the following occur: No concerns reported Const General: well developed; No acute distress Nutritional Appearance: well nourished Orientation/consciousness: patient oriented x3 HENMT Head: Yes normocephalic and Yes atraumatic Eyes General: appearance normal, both eyes and all related structures Pupils: Equal, round and reactive pupils present EOM: EOMs intact bilaterally Resp Effort & Inspection: normal respiratory effort Neuro General: patient oriented x3 and gait normal Cranial nerves: Yes Equal, round and reactive pupils present Psych Affect: normal affect Coding Level of Care Code Est Pt Level 3 (68228) Diagnoses Anxiety and depression F41.9; F32.A Additional Codes JANUARY-7 Assessment Billing - JANUARY-7 Assessment Tool: JANUARY-7 Assessment 64592 ([id number]) PHQ-9 - 37361 - PHQ-9 Billing: Yes ([id number]) Assessment & Plan Assessment & Plan (1) Anxiety and depression: Code(s): F41.9 - Anxiety disorder, unspecified; F32.A - Depression, unspecified Category: Medical Plan: Ongoing anxiety and depression. Symptoms well controlled with therapy and medication. Also requires as a necessary part of his treatment, no over time. He has been doing well with these./treatments. He can follow-up with Psychiatry as needed and follows up with therapy regularly [facility] paperwork filled out from April 17 through September 15 for the above restrictions to his work hours. He also has intermittent leave of up to 5 times her week and up to 8 hours per episode.
[2025-04-03 14:10] VITALS: BP 123/85; PULSE 81; RESP 12; TEMP 36.1; O2SAT 98; BMI 29.7
--- OUTSIDE RECORDS SUMMARY | 2025-04-03 18:19 | XMS_ITS | Clinical Summary ---
Author Organization [facility] Address [address] [place] [address] Care Team Providers Care Audit Lead Name Role Phone Unavailable Primary Care Provider [...] - 19+ 3-dose series) 02/10/1995 COVID-19 Vaccine (2024-2 6 season) 2024 Pneumococcal Vaccine: Pediat claudia (0-5 Years) and At-Risk Patients (6 to 49 Years) Aged Out No longer eligible b ased on patient's age to complete this topic
== END 2025-04-03 15:22 | disposition home or self-care (01) ==
LOC: HO.HMCFM 14:04
PROVIDERS: PCP Family Medicine; Visit Provider Family Medicine
DX: F41.9 Anxiety disorder, unspecified (principal); F32.A Depression, unspecified

== ENCOUNTER → 2025-04-03 14:03 | Outpatient (BNVA) | payer BC, SELFPAY | PROVIDERS: PCP Family Medicine; Visit Provider Family Medicine | DX: F41.0 Panic disorder [episodic paroxysmal anxiety] (principal); F32.A Depression, unspecified; F41.9 Anxiety disorder, unspecified | CPT/HCPCS: 96127 ==